=== PATIENT | female | born 1970 | race Caucasian/White ===

== ENCOUNTER 2019-07-25 12:17 | Inpatient (IN) | payer BC, MEDICARE ==
[~2019-07-25] VITALS: Ht 170.2 cm; Wt 106.4 kg
--- NOTE | 2019-07-25 15:46 | NUR ---
FROM LOBBY TO ROOM AT THIS TIME. PIT ORDERS COMPLETED
[2019-07-25] MEDS ORDERED: HYDROmorphone 1 MG/ML, 1ML INJ IM ONE (16:00)
[2019-07-25] MEDS ORDERED: ONDANSETRON ODT 4 MG PO ONE (16:00)
[2019-07-25] MEDS ORDERED: HYDROmorphone 1 MG/ML, 1ML INJ ONE (16:15)
[2019-07-25] MEDS ORDERED: ONDANSETRON ODT 4 MG ONE (16:15)
--- NOTE | 2019-07-25 16:20 | NUR ---
PT HERE WITH C/O RIGHT HIP PAIN WORSE THAN LEFT. PT HAS HX CHRONIC HIP PAIN AND SEES PAIN MANAGEMENT OUTPATIENT.
--- NOTE | 2019-07-25 16:20 | NUR ---
PT MEDICATED PER ORDERS.
[2019-07-25 16:32] LABS: HCT (SEDRATE) 48.9 % (34.6-47.8)
[2019-07-25 16:33] LABS: BASOPHILS # (AUTO) 0.04 x10^3/uL (0-0.1); BASOPHILS % (AUTO) 0 % (0-1); EOSINOPHILS # (AUTO) 0.22 x10^3/uL (0-0.4); EOSINOPHILS % (AUTO) 2 % (1-7); LYMPHOCYTES # (AUTO) 3.84 x10^3/uL (1-3.4); LYMPHOCYTES % (AUTO) 36 % (22-44); MD NO; MEAN CORPUSCULAR HGB CONC 33.8 g/dL (32.4-35.8); MEAN CORPUSCULAR VOLUME 94.7 fL (80-100); MEAN PLATELET VOLUME 7.6 fL (7.4-10.4); MONOCYTES # (AUTO) 0.79 x10^3/uL (0.2-0.8); MONOCYTES % (AUTO) 8 % (2-9); NEUTROPHILS # (AUTO) 5.65 x10^3/uL (1.8-6.8); NEUTROPHILS % (AUTO) 54 % (42-75); PLATELET COUNT 290 x10^3/uL (130-400); RED BLOOD COUNT 5.16 x10^6/uL (3.82-5.3); RED CELL DISTRIBUTION WIDTH 12.7 % (9.6-15.2)
[2019-07-25 16:45] LABS: ANION GAP 6 mmol/L (5-15); CALCIUM 9.9 mg/dL (8.5-10.1); CHLORIDE 108 mmol/L (98-107)
[2019-07-25 16:47] LABS: CREATININE 0.79 mg/dL (0.55-1.02)
[2019-07-25] MEDS ORDERED: MORPHINE SULFATE 4 MG/ML, 1ML ONE (17:09)
--- NOTE | 2019-07-25 17:12 | NUR ---
[facility] AT BEDSIDE, UA LABELLED AND SENT, PT MEDICATED PER ORDERS. PIV ESTABLISHED BY THIS RN.
[2019-07-25] MEDS: morphine SULFATE 10 MG/ML, 1ML IVPush PRN ×2 (17:19→20:17)
[2019-07-25] MEDS ORDERED: DOCU-131 PO (17:22)
[2019-07-25] MEDS ORDERED: NEBI10TA3 PO (17:22)
[2019-07-25] MEDS ORDERED: CELE100C PO (17:22)
[2019-07-25] MEDS ORDERED: ESOM40CA PO (17:22)
[2019-07-25] MEDS ORDERED: HYDR-3653 PO (17:22)
[2019-07-25] MEDS ORDERED: OXCA150T18 PO (17:22)
--- NOTE | 2019-07-25 17:22 | NUR ---
MED REC COMPLETED.
[2019-07-25] MEDS ORDERED: PROMETHAZINE 25 MG/ML, 1ML IM PRN (17:30)
[2019-07-25] MEDS ORDERED: LABETALOL 5MG/ML, 20ML IVPush PRN (17:30)
[2019-07-25] MEDS ORDERED: hydrALAzine 20 MG/ML, 1ML IVPush PRN (17:30)
[2019-07-25] MEDS ORDERED: CYCLOBENZAPRINE 10 MG TABLET PO PRN (17:30)
[2019-07-25] MEDS ORDERED: ACETAMINOPHEN 325 MG TABLET PO PRN (17:30)
[2019-07-25] MEDS ORDERED: GABAPENTIN 300 MG CAPSULE PO PRN (17:30)
[2019-07-25 17:32] LABS: MICROSCOPIC AUTO
[2019-07-25 17:36] LABS: CULTURE INDICATED? YES
[2019-07-25] MEDS: HEPARIN 5,000 UNITS/ML, 1ML SQ SCH (17:49)
[2019-07-25] MEDS: SODIUM CHLORIDE 0.9% 1,000 ML IV SCH (17:50)
[2019-07-25] MEDS ORDERED: TRAM50TA2 PO (18:03)
--- NOTE | 2019-07-25 18:04 | NUR ---
REPORT GIVEN MANJIT LUU. PT TO TRANSFER WITH ALL BELONGINGS TO INPATIENT STATUS.
[2019-07-25 19:23] VITALS: BP 125/84
[2019-07-25] MEDS: OXCARBAZEPINE 150 MG TABLET PO SCH (22:09)
[2019-07-25] MEDS: OXYcodone IR 5MG TABLET PO PRN (22:10)
[2019-07-26] MEDS: HEPARIN 5,000 UNITS/ML, 1ML SQ SCH ×3 (02:08→21:55)
[2019-07-26] MEDS: OXYcodone IR 5MG TABLET PO PRN ×5 (02:08→19:13)
[2019-07-26 02:44] VITALS: BP 112/79
[2019-07-26 06:19] LABS: BASOPHILS # (AUTO) 0.03 x10^3/uL (0-0.1); BASOPHILS % (AUTO) 1 % (0-1); EOSINOPHILS # (AUTO) 0.26 x10^3/uL (0-0.4); EOSINOPHILS % (AUTO) 3 % (1-7); LYMPHOCYTES # (AUTO) 2.47 x10^3/uL (1-3.4); LYMPHOCYTES % (AUTO) 32 % (22-44); MD NO; MEAN CORPUSCULAR HEMOGLOBIN 31.8 pg (27.0-34.8); MEAN CORPUSCULAR HGB CONC 33.3 g/dL (32.4-35.8); MEAN CORPUSCULAR VOLUME 95.5 fL (80-100); MEAN PLATELET VOLUME 7.5 fL (7.4-10.4); MONOCYTES # (AUTO) 0.61 x10^3/uL (0.2-0.8); MONOCYTES % (AUTO) 8 % (2-9); NEUTROPHILS # (AUTO) 4.44 x10^3/uL (1.8-6.8); NEUTROPHILS % (AUTO) 57 % (42-75); PLATELET COUNT 265 x10^3/uL (130-400); RED BLOOD COUNT 4.83 x10^6/uL (3.82-5.3); RED CELL DISTRIBUTION WIDTH 12.8 % (9.6-15.2)
[2019-07-26 06:23] LABS: ALBUMIN 3.3 g/dL (3.4-5.0); ANION GAP 8 mmol/L (5-15); CALCIUM 8.9 mg/dL (8.5-10.1); CHLORIDE 108 mmol/L (98-107)
[2019-07-26 06:27] LABS: ALANINE AMINOTRANSFERASE 117 U/L (12-78); ALKALINE PHOSPHATASE 83 U/L (45-117); BILIRUBIN,TOTAL 0.8 mg/dL (0.2-1.0); CREATININE 0.72 mg/dL (0.55-1.02); TOTAL PROTEIN 6.9 g/dL (6.4-8.2)
[2019-07-26 07:17] VITALS: BP 132/88
[2019-07-26] MEDS: OXCARBAZEPINE 150 MG TABLET PO SCH ×2 (08:14→21:55)
[2019-07-26] MEDS: morphine SULFATE 10 MG/ML, 1ML IVPush PRN (10:23)
[2019-07-26 13:06] VITALS: BP 108/70
[2019-07-26] MEDS: ONDANSETRON 2MG/ML, 2ML IVPush PRN (15:54)
[2019-07-26] MEDS: SODIUM CHLORIDE 0.9% 1,000 ML IV SCH (15:54)
[2019-07-26 20:10] VITALS: BP 124/79
[2019-07-27 00:14] VITALS: BP 121/82
[2019-07-27] MEDS: OXYcodone IR 5MG TABLET PO PRN ×3 (03:02→14:11)
[2019-07-27] MEDS: HEPARIN 5,000 UNITS/ML, 1ML SQ SCH ×2 (05:59→13:00)
[2019-07-27 08:56] VITALS: BP 146/96
[2019-07-27] MEDS ORDERED: CYCL-259 PO (09:45)
[2019-07-27] MEDS ORDERED: GABA300C10 PO (09:45)
[2019-07-27] MEDS: ONDANSETRON 2MG/ML, 2ML IVPush PRN (10:17)
[2019-07-27] MEDS: OXCARBAZEPINE 150 MG TABLET PO SCH (10:17)
== END 2019-07-27 14:25 | disposition home or self-care (01) | DRG 556 ==
LOC: ED 18:07 → 3N 19:11 → DCLOUNGE 07-27 14:16
PROVIDERS: ADMIT Internal Medicine; ATTEND Internal Medicine
DX: M25.551 Pain in right hip (principal); N39.0 Urinary tract infection, site not specified; Z94.81 Bone marrow transplant status; D75.1 Secondary polycythemia; E66.9 Obesity, unspecified; G89.29 Other chronic pain; I10 Essential (primary) hypertension; M25.552 Pain in left hip; I16.0 Hypertensive urgency; K59.00 Constipation, unspecified; K76.0 Fatty (change of) liver, not elsewhere classified; Z85.6 Personal history of leukemia; Z85.72 Personal history of non-Hodgkin lymphomas; Z90.710 Acquired absence of both cervix and uterus; Z90.49 Acquired absence of other specified parts of digestive tract
CPT/HCPCS: 36415; 73523; 74176; 76705; 80048; 80053; 81001; 82040; 85025; 85651; 87086; 99285; G0378; J1170; J1644; J2405; J2550; Q0162; J2270; J7030

== ENCOUNTER 2019-10-27 09:23 | Inpatient (IN) | payer OTHER, MEDICARE ==
[~2019-10-27] VITALS: Ht 170.2 cm; Wt 101.4 kg
[~2019-10-27 09:23] MED LIST: CELE100C PO; CYCL-259 PO; DOCU-131 PO; ESOM40CA PO; GABA300C10 PO; HYDR-3653 PO; NEBI10TA3 PO; OXCA150T18 PO; TRAM50TA2 PO
[2019-10-27] MEDS ORDERED: ASPIRIN 81 MG TABLET CHEW PO ONE (10:00)
[2019-10-27] MEDS ORDERED: PLEASE ENTER HEIGHT AND WEIGHT MC SCH (10:00)
[2019-10-27] MEDS ORDERED: ASPIRIN 81 MG TABLET CHEW ONE (10:06)
--- NOTE | 2019-10-27 10:09 | NUR ---
SPOKE WITH IN LOBBY, CONFIRMED WHAT PT REPORTED. ADDITIONAL INFORMATION GIVEN TO ERP. ON ARRIVAL, PT PLACED ON HEART MONITOR, BP CUFF, PULSE OX. IV PLACED, LABS DRAWN BY HOUSING GRANT ANALYST-PT WITH POOR VENOUS ACCESS. PT MEDICATED PER ERP ORDER WITH ASA. PT WITH NAUSEA/DRY HEAVES FOLLOWING, ZOFRAN 4MG IVP GIVEN. AWAITING LAB RESULTS, CXR. PT STATES "I THINK I HAVE PNEUMONIA AGAIN". PT STATES PNA 3 MONTHS AGO, REPORTS NO COUGH OR FEVER AT THAT TIME. PT DENIES FEVER OR COUGH NOW WELL. C/O CHEST PRESSURE AND R "RIB" PAIN. CALL LIGHT WITHIN REACH.
[2019-10-27] MEDS ORDERED: ONDANSETRON 2MG/ML, 2ML ONE (10:11)
[2019-10-27 10:17] LABS: BASOPHILS # (AUTO) 0.02 x10^3/uL (0-0.1); BASOPHILS % (AUTO) 0 % (0-1); EOSINOPHILS # (AUTO) 0.13 x10^3/uL (0-0.4); EOSINOPHILS % (AUTO) 2 % (1-7); LYMPHOCYTES % (AUTO) 23 % (22-44); MD NO; MEAN CORPUSCULAR HEMOGLOBIN 32.5 pg (27.0-34.8); MEAN CORPUSCULAR HGB CONC 34.1 g/dL (32.4-35.8); MEAN CORPUSCULAR VOLUME 95.2 fL (80-100); MEAN PLATELET VOLUME 8.3 fL (7.4-10.4); MONOCYTES # (AUTO) 0.35 x10^3/uL (0.2-0.8); MONOCYTES % (AUTO) 5 % (2-9); NEUTROPHILS # (AUTO) 4.83 x10^3/uL (1.8-6.8); NEUTROPHILS % (AUTO) 70 % (42-75); PLATELET COUNT 283 x10^3/uL (130-400); RED BLOOD COUNT 4.71 x10^6/uL (3.82-5.3); RED CELL DISTRIBUTION WIDTH 12.7 % (9.6-15.2)
[2019-10-27] MEDS ORDERED: OXYC10TA6 PO (10:22)
[2019-10-27 10:29] LABS: ALANINE AMINOTRANSFERASE 36 U/L (12-78); ALBUMIN 3.9 g/dL (3.4-5.0); ANION GAP 8 mmol/L (5-15); CALCIUM 10.1 mg/dL (8.5-10.1); CHLORIDE 112 mmol/L (98-107); CREATININE 0.84 mg/dL (0.55-1.02)
[2019-10-27] MEDS ORDERED: ONDANSETRON 2MG/ML, 2ML IVPush ONE (10:30)
[2019-10-27 10:33] LABS: ALKALINE PHOSPHATASE 62 U/L (45-117); BILIRUBIN,TOTAL 0.5 mg/dL (0.2-1.0); TROPONIN I < 0.015 ng/mL (0.000-0.045)
--- NOTE | 2019-10-27 11:04 | NUR ---
PT ASSISTED ON BEDPAN, STATES SHE'S TOO WEAK TO GET UP TO BSC. PT ALSO REQUESTING PAIN MEDICATION FOR CHEST PRESSURE-ERP NOTIFIED.
--- NOTE | 2019-10-27 11:20 | NUR ---
PT REMOVED FROM BEDPAN. PT STATES UNABLE TO GO ON BEDPAN. ERP IN WITH SPOUSE TO DISCUSS FINDINGS AND POC.
[2019-10-27] MEDS ORDERED: [UNRECOGNIZED DRUG - OTHER] IM (11:58)
--- NOTE | 2019-10-27 12:00 | NUR ---
MED REC COMPLETED. VSS/UPDATED IN COMPUTER. PT UPDATED ON POC-TBADMIT.
[2019-10-27] MEDS ORDERED: SODIUM CHLORIDE FLUSH 10ML SYR IVF PRN (12:30)
[2019-10-27] MEDS: SODIUM CHLORIDE 0.9% 1,000 ML IV SCH (12:41)
--- NOTE | 2019-10-27 13:39 | NUR ---
PT TO MRI, NEUROSTIMULATOR PLACED IN MRI MODE.
--- NOTE | 2019-10-27 14:15 | NUR ---
REPORT CALLED TO DEEPTHI SARAVIA. PT BACK FROM CT. CALL TO MRI TO INQUIRE ON WHY EXAM NOT DONE. PER MRI, PT'S SHOULDERS TOO WIDE FOR AVAIL MRI MACHINE. LARGER MRI IN USE AT THIS TIME. DEEPTHI CALLED AND UPDATED.
[2019-10-27 16:32] VITALS: BP 141/98
[2019-10-27 16:48] LABS: TROPONIN I < 0.015 ng/mL (0.000-0.045)
[2019-10-27] MEDS: OXYcodone/APAP 5/325MG TABLET PO PRN ×3 (17:11→22:30)
[2019-10-27 19:27] VITALS: BP 131/87
[2019-10-27] MEDS: ATORVASTATIN 40 MG TABLET PO SCH (20:24)
[2019-10-27 22:26] LABS: TROPONIN I < 0.015 ng/mL (0.000-0.045)
[2019-10-27] MEDS: ACETAMINOPHEN 325 MG TABLET PO PRN (22:30)
[2019-10-27 22:35] VITALS: BP 135/89
[2019-10-27] MEDS: ONDANSETRON 2MG/ML, 2ML IVPush PRN (22:42)
[2019-10-28 01:11] VITALS: BP 120/78
[2019-10-28] MEDS: SODIUM CHLORIDE 0.9% 1,000 ML IV SCH ×2 (02:01→15:21)
[2019-10-28] MEDS: OXYcodone/APAP 5/325MG TABLET PO PRN ×4 (04:14→14:21)
[2019-10-28] MEDS: ACETAMINOPHEN 325 MG TABLET PO PRN (04:14)
[2019-10-28 04:59] LABS: ALANINE AMINOTRANSFERASE 31 U/L (12-78); ALBUMIN 3.6 g/dL (3.4-5.0); ANION GAP 7 mmol/L (5-15); CALCIUM 9.5 mg/dL (8.5-10.1); CHLORIDE 111 mmol/L (98-107); CREATININE 0.88 mg/dL (0.55-1.02)
[2019-10-28 05:01] LABS: ALKALINE PHOSPHATASE 52 U/L (45-117); BILIRUBIN,TOTAL 0.7 mg/dL (0.2-1.0); TOTAL PROTEIN 7.4 g/dL (6.4-8.2)
[2019-10-28 05:04] LABS: BASOPHILS # (AUTO) 0.04 x10^3/uL (0-0.1); BASOPHILS % (AUTO) 1 % (0-1); EOSINOPHILS # (AUTO) 0.23 x10^3/uL (0-0.4); EOSINOPHILS % (AUTO) 2 % (1-7); LYMPHOCYTES # (AUTO) 3.13 x10^3/uL (1-3.4); LYMPHOCYTES % (AUTO) 33 % (22-44); MD NO; MEAN CORPUSCULAR HEMOGLOBIN 32.2 pg (27.0-34.8); MEAN CORPUSCULAR HGB CONC 33.9 g/dL (32.4-35.8); MEAN PLATELET VOLUME 8.4 fL (7.4-10.4); MONOCYTES # (AUTO) 0.73 x10^3/uL (0.2-0.8); MONOCYTES % (AUTO) 8 % (2-9); NEUTROPHILS # (AUTO) 5.33 x10^3/uL (1.8-6.8); NEUTROPHILS % (AUTO) 56 % (42-75); PLATELET COUNT 290 x10^3/uL (130-400); RED BLOOD COUNT 4.52 x10^6/uL (3.82-5.3); RED CELL DISTRIBUTION WIDTH 12.7 % (9.6-15.2)
[2019-10-28] MEDS: PANTOPRAZOLE 40MG TABLET PO SCH (05:26)
[2019-10-28] MEDS: OXCARBAZEPINE 150 MG TABLET PO SCH (08:26)
[2019-10-28] MEDS: NEBIVOLOL HCL 5 MG TABLET PO SCH (08:26)
[2019-10-28 08:36] VITALS: BP 122/78
[2019-10-28] MEDS ORDERED: MAGNESIUM SULFATE PMX 2GM/50ML 50 ML ONE (09:49)
[2019-10-28] MEDS ORDERED: PROCHLORPERAZINE 5 MG/ML, 2ML IVPush ONE (10:00)
[2019-10-28] MEDS ORDERED: DIPHENHYDRAMINE 50 MG/ML, 1ML IVPush ONE (10:00)
[2019-10-28] MEDS ORDERED: MAGNESIUM SULFATE/D5W 100 ML IV ONE (10:00)
[2019-10-28] MEDS ORDERED: GADOTERATE 10 MMOL/20 ML SYR ONE (11:30)
[2019-10-28 14:00] VITALS: BP 124/85
[2019-10-28] MEDS ORDERED: DIPHENHYDRAMINE 50 MG/ML, 1ML ONE (18:54)
[2019-10-28] MEDS: PROCHLORPERAZINE 5 MG/ML, 2ML IVPush PRN (19:11)
[2019-10-28] MEDS: DIPHENHYDRAMINE 50 MG/ML, 1ML IVPush PRN (19:11)
[2019-10-28 19:33] VITALS: BP 125/80
[2019-10-28] MEDS: ATORVASTATIN 40 MG TABLET PO SCH (20:36)
[2019-10-28] MEDS ORDERED: KETOROLAC 30 MG/1 ML IVPush SCH (21:00)
[2019-10-28] MEDS: ONDANSETRON 2MG/ML, 2ML IVPush PRN (23:54)
[2019-10-29 01:10] VITALS: BP 126/80
[2019-10-29] MEDS: DIPHENHYDRAMINE 50 MG/ML, 1ML IVPush PRN ×2 (05:29→16:00)
[2019-10-29] MEDS: PANTOPRAZOLE 40MG TABLET PO SCH (05:29)
[2019-10-29] MEDS: PROCHLORPERAZINE 5 MG/ML, 2ML IVPush PRN ×2 (05:29→16:00)
[2019-10-29] MEDS: KETOROLAC 30 MG/1 ML IVPush PRN ×2 (05:30→16:01)
[2019-10-29 08:25] VITALS: BP 138/89
[2019-10-29] MEDS: ONDANSETRON 2MG/ML, 2ML IVPush PRN (08:33)
[2019-10-29] MEDS: SODIUM CHLORIDE 0.9% 1,000 ML IV SCH (08:33)
[2019-10-29] MEDS: OXCARBAZEPINE 150 MG TABLET PO SCH (08:36)
[2019-10-29] MEDS: NEBIVOLOL HCL 5 MG TABLET PO SCH (08:36)
[2019-10-29] MEDS ORDERED: SODIUM PHOSPHATE 20 MMOL in SODIUM CHLORIDE 0.9% 500 ML IV ONE (09:00)
[2019-10-29] MEDS: OXYcodone/APAP 5/325MG TABLET PO PRN (12:30)
[2019-10-29] MEDS ORDERED: GADOTERATE 10 MMOL/20 ML SYR ONE (14:45)
[2019-10-29] MEDS ORDERED: GADOTERATE 5 MMOL/10 ML VIAL ONE (14:45)
[2019-10-29 15:29] VITALS: BP 131/83
[2019-10-29 21:02] VITALS: BP 146/94
[2019-10-29] MEDS: ATORVASTATIN 40 MG TABLET PO SCH (21:03)
[2019-10-29] MEDS: AMITRIPTYLINE 10 MG TABLET PO SCH (21:03)
[2019-10-30] MEDS: OXYcodone/APAP 5/325MG TABLET PO PRN ×2 (00:21→14:47)
[2019-10-30 00:27] VITALS: BP 148/75
[2019-10-30] MEDS: SODIUM CHLORIDE 0.9% 1,000 ML IV SCH (05:19)
[2019-10-30] MEDS: PANTOPRAZOLE 40MG TABLET PO SCH (05:19)
[2019-10-30 06:43] VITALS: BP 129/84
[2019-10-30] MEDS: OXCARBAZEPINE 150 MG TABLET PO SCH (08:09)
[2019-10-30] MEDS: NEBIVOLOL HCL 5 MG TABLET PO SCH (08:09)
[2019-10-30] MEDS: PROCHLORPERAZINE 5 MG/ML, 2ML IVPush PRN ×2 (10:26→19:32)
[2019-10-30] MEDS ORDERED: SUMATRIPTAN 50 MG TABLET PO PRN (11:30)
[2019-10-30 12:18] VITALS: BP 133/87
[2019-10-30] MEDS ORDERED: SUMATRIPTAN 25 MG TABLET ONE (18:07)
[2019-10-30 18:38] VITALS: BP 134/80
[2019-10-30] MEDS: AMITRIPTYLINE 10 MG TABLET PO SCH (19:24)
[2019-10-30] MEDS: ATORVASTATIN 40 MG TABLET PO SCH (19:24)
[2019-10-30] MEDS: DIPHENHYDRAMINE 50 MG/ML, 1ML IVPush PRN (19:32)
[2019-10-31 00:21] VITALS: BP 128/87
[2019-10-31] MEDS: OXYcodone/APAP 5/325MG TABLET PO PRN ×5 (02:28→23:16)
[2019-10-31] MEDS: PANTOPRAZOLE 40MG TABLET PO SCH (05:52)
[2019-10-31 06:54] LABS: ANION GAP 8 mmol/L (5-15); CALCIUM 9.9 mg/dL (8.5-10.1); CHLORIDE 112 mmol/L (98-107); CREATININE 0.69 mg/dL (0.55-1.02)
[2019-10-31 06:57] LABS: BASOPHILS # (AUTO) 0.05 x10^3/uL (0-0.1); BASOPHILS % (AUTO) 1 % (0-1); EOSINOPHILS # (AUTO) 0.38 x10^3/uL (0-0.4); EOSINOPHILS % (AUTO) 4 % (1-7); LYMPHOCYTES # (AUTO) 3.73 x10^3/uL (1-3.4); LYMPHOCYTES % (AUTO) 41 % (22-44); MD NO; MEAN CORPUSCULAR HEMOGLOBIN 32.3 pg (27.0-34.8); MEAN CORPUSCULAR HGB CONC 33.6 g/dL (32.4-35.8); MEAN CORPUSCULAR VOLUME 96.1 fL (80-100); MEAN PLATELET VOLUME 8.4 fL (7.4-10.4); MONOCYTES # (AUTO) 0.65 x10^3/uL (0.2-0.8); MONOCYTES % (AUTO) 7 % (2-9); NEUTROPHILS # (AUTO) 4.31 x10^3/uL (1.8-6.8); NEUTROPHILS % (AUTO) 47 % (42-75); PLATELET COUNT 271 x10^3/uL (130-400); RED BLOOD COUNT 4.61 x10^6/uL (3.82-5.3); RED CELL DISTRIBUTION WIDTH 13.2 % (9.6-15.2)
[2019-10-31 07:21] VITALS: BP 123/76
[2019-10-31] MEDS: NEBIVOLOL HCL 5 MG TABLET PO SCH (08:43)
[2019-10-31] MEDS: OXCARBAZEPINE 150 MG TABLET PO SCH (08:43)
[2019-10-31 12:13] VITALS: BP 144/86
[2019-10-31] MEDS ORDERED: ERENUMAB AOOE 140 MG HOMEINJ ONE (13:00)
[2019-10-31 19:49] VITALS: BP 149/93
[2019-10-31] MEDS: AMITRIPTYLINE 10 MG TABLET PO SCH (20:01)
[2019-10-31] MEDS: ATORVASTATIN 40 MG TABLET PO SCH (20:01)
[2019-10-31 21:41] VITALS: BP 143/89
[2019-11-01 02:00] VITALS: BP 138/82
[2019-11-01] MEDS: OXYcodone/APAP 5/325MG TABLET PO PRN ×2 (04:29→12:17)
[2019-11-01] MEDS: PANTOPRAZOLE 40MG TABLET PO SCH (05:30)
[2019-11-01 07:16] VITALS: BP 160/100
[2019-11-01] MEDS: NEBIVOLOL HCL 5 MG TABLET PO SCH (07:42)
[2019-11-01] MEDS: OXCARBAZEPINE 150 MG TABLET PO SCH (07:42)
[2019-11-01] MEDS: PROCHLORPERAZINE 5 MG/ML, 2ML IVPush PRN (07:49)
[2019-11-01] MEDS: DIPHENHYDRAMINE 50 MG/ML, 1ML IVPush PRN (07:49)
[2019-11-01] MEDS ORDERED: AMIT10TA PO (12:02)
== END 2019-11-01 13:40 | disposition home or self-care (01) | DRG 103 ==
LOC: ED 11:45 → EDIP 12:02 → 4WST 14:33 → DCLOUNGE 11-01 13:30
PROVIDERS: ADMIT Internal Medicine; ATTEND Family Medicine
DX: G43.909 Migraine, unspecified, not intractable, without status migrainosus (principal); Z94.81 Bone marrow transplant status; I10 Essential (primary) hypertension; E66.9 Obesity, unspecified; G47.33 Obstructive sleep apnea (adult) (pediatric); E87.6 Hypokalemia; G89.29 Other chronic pain; M54.9 Dorsalgia, unspecified; Z90.710 Acquired absence of both cervix and uterus; Z90.49 Acquired absence of other specified parts of digestive tract; Z88.8 Allergy status to other drugs, medicaments and biological substances; Z91.041 Radiographic dye allergy status; Z91.040 Latex allergy status; Z85.6 Personal history of leukemia; Z79.899 Other long term (current) drug therapy; Z86.011 Personal history of benign neoplasm of the brain; Z85.72 Personal history of non-Hodgkin lymphomas
CPT/HCPCS: 36415; 70544; 70553; 71045; 71250; 72156; 72157; 72158; 74176; 80048; 80053; 82550; 82607; 83690; 83735; 84100; 84443; 84484; 85025; 85379; 93005; 93306; 93356; 99285; A9575; G0378; J1885; J2405; J0780; J1200; J7030; J7040

== ENCOUNTER 2020-01-02 10:22 | Inpatient (IN) | payer OTHER, MEDICARE ==
[~2020-01-02] VITALS: Ht 168.9 cm; Wt 98.9 kg
[~2020-01-02 10:22] MED LIST changes: +AMIT10TA PO; +BUSP10TA PO; +FREM225S IJ; +OXCA300T19 PO; +OXYC10TA6 PO; +OXYC5CAP2 PO; +POLY17PO5 PO; +TRAZ50TA66 PO; +[UNRECOGNIZED DRUG - OTHER] IM; +topamax PO
[2020-01-02] MEDS ORDERED: LIDOCAINE-MPF 1%, 2ML INFIL ONE (10:44)
[2020-01-02] MEDS ORDERED: LACTATED RINGERS 1,000 ML IV ONE (10:44)
[2020-01-02 10:45] VITALS: BP 143/99
[2020-01-02] MEDS ORDERED: FENTANYL PF 100 MCG/2ML ONE ×3 (11:18→13:49)
[2020-01-02] MEDS ORDERED: MIDAZOLAM 1 MG/ML, 2ML ONE (11:18)
[2020-01-02] MEDS ORDERED: SUCCINYLCHOLINE 20 MG/ML, 10ML ONE (11:53)
[2020-01-02] MEDS ORDERED: KETOROLAC 30 MG/1 ML ONE (11:53)
[2020-01-02] MEDS ORDERED: ROCURONIUM 10 MG/ML,10ML ONE (11:53)
[2020-01-02] MEDS ORDERED: ONDANSETRON 2MG/ML, 2ML ONE (12:27)
[2020-01-02] MEDS ORDERED: PROPOFOL 10 MG/ML, 20ML ONE (12:27)
[2020-01-02] MEDS ORDERED: DEXAMETHASONE 4 MG/ML, 1ML ONE (12:27)
[2020-01-02] MEDS ORDERED: CEFAZOLIN 1,000 MG ONE (12:27)
[2020-01-02] MEDS: LABETALOL 5MG/ML, 20ML IV PRN ×3 (13:07→13:32)
[2020-01-02] MEDS ORDERED: LABETALOL 5MG/ML, 20ML ONE (13:08)
[2020-01-02] MEDS ORDERED: PROMETHAZINE 25 MG/ML, 1ML ONE (13:23)
[2020-01-02] MEDS: PROMETHAZINE 25 MG/ML, 1ML IVPush PRN ×2 (13:25→13:55)
[2020-01-02] MEDS ORDERED: HYDROmorphone 1 MG/ML, 1ML INJ IVPush PRN (13:30)
[2020-01-02] MEDS ORDERED: hydrALAzine 20 MG/ML, 1ML IV PRN (13:30)
[2020-01-02] MEDS ORDERED: ACETAMINOPHEN 325 MG TABLET PO PRN (13:30)
[2020-01-02] MEDS ORDERED: OXYcodone 5 MG/5 ML ORAL.SOL UDC PO PRN (13:30)
[2020-01-02] MEDS ORDERED: LORazepam 2 MG/ML, 1ML IVPush PRN (13:30)
[2020-01-02] MEDS ORDERED: MEPERIDINE/PF 25MG/0.5ML IVPush PRN (13:30)
[2020-01-02] MEDS ORDERED: ALBUTEROL SULFATE 2.5 MG/3 ML NPPB PRN (13:30)
[2020-01-02 13:34] LABS: 5MIN %DROP IOPTH 87 %; IOPTH BASELINE 61 pg/mL
[2020-01-02] MEDS ORDERED: hydrALAzine 20 MG/ML, 1ML ONE (13:36)
[2020-01-02] MEDS: FENTANYL PF 100 MCG/2ML IV PRN ×4 (13:52→14:22)
[2020-01-02 14:50] VITALS: BP 134/86
[2020-01-02] MEDS ORDERED: POLYETHYLENE GLYCOL 17 GM PACKET PO PRN (15:30)
[2020-01-02] MEDS ORDERED: KETOROLAC 30 MG/1 ML IV PRN (15:30)
[2020-01-02] MEDS ORDERED: TRAZODONE 50MG TABLET PO PRN (15:30)
[2020-01-02] MEDS: [UNRECOGNIZED DRUG - REMARK] MC SCH ×2 (15:30→21:44)
[2020-01-02] MEDS: HYDROmorphone 1 MG/ML, 1ML INJ IV PRN ×2 (17:33→19:47)
[2020-01-02 18:15] LABS: CALCIUM 9.1 mg/dL (8.5-10.1)
[2020-01-02] MEDS: OXYcodone IR 5MG TABLET PO SCH (19:48)
[2020-01-02] MEDS: LACTATED RINGERS 1,000 ML IV SCH (19:48)
[2020-01-02] MEDS: BUSPIRONE 10 MG TABLET PO SCH (19:48)
[2020-01-02] MEDS: DOCUSATE 100 MG CAPSULE PO SCH (19:48)
[2020-01-02] MEDS: OXCARBAZEPINE 300MG TABLET PO SCH (19:48)
[2020-01-02 19:50] VITALS: BP 123/85
[2020-01-02] MEDS: HYDROcodone/APAP 5/325 TABLET PO PRN (23:49)
[2020-01-02 23:56] VITALS: BP 97/68
[2020-01-03 01:00] LABS: ALBUMIN 3.5 g/dL (3.4-5.0); CALCIUM 8.6 mg/dL (8.5-10.1)
[2020-01-03 03:50] VITALS: BP 109/76
[2020-01-03] MEDS: HYDROcodone/APAP 5/325 TABLET PO PRN ×2 (03:54→09:24)
[2020-01-03 05:00] VITALS: BP 110/74
[2020-01-03] MEDS ORDERED: NEBIVOLOL HCL 5 MG TABLET PO SCH (06:00)
[2020-01-03 07:06] LABS: ALBUMIN 3.6 g/dL (3.4-5.0); CALCIUM 8.9 mg/dL (8.5-10.1)
[2020-01-03] MEDS: HYDROmorphone 1 MG/ML, 1ML INJ IV PRN (07:21)
[2020-01-03 07:27] VITALS: BP 103/67
[2020-01-03] MEDS: [UNRECOGNIZED DRUG - REMARK] MC SCH (07:30)
[2020-01-03] MEDS: BUSPIRONE 10 MG TABLET PO SCH (08:05)
[2020-01-03] MEDS: OXCARBAZEPINE 300MG TABLET PO SCH (08:06)
[2020-01-03] MEDS: DOCUSATE 100 MG CAPSULE PO SCH (08:06)
[2020-01-03] MEDS: OXYcodone IR 5MG TABLET PO SCH (08:06)
[2020-01-03] MEDS: LACTATED RINGERS 1,000 ML IV SCH (09:20)
[2020-01-03] MEDS ORDERED: HYDR-3652 PO (09:25)
== END 2020-01-03 11:52 | disposition home or self-care (01) | DRG 627 ==
LOC: OUT 10:22 → 4NE 14:39 → OUT 15:01 → DCLOUNGE 01-03 11:40
PROVIDERS: ADMIT Surgery; ATTEND Surgery
PROC: 0GTR0ZZ Resection of Parathyroid Gland, Open Approach (ICD-10-PCS; principal; 2020-01-02 13:30)
DX: E21.0 Primary hyperparathyroidism (principal); Z20.828 Contact with and (suspected) exposure to other viral communicable diseases; Z91.041 Radiographic dye allergy status; Z88.8 Allergy status to other drugs, medicaments and biological substances
CPT/HCPCS: 36415; J3490; 82040; 82310; 83970; 87635; 88305; 88331; 93005; G0378; J0690; J1100; J1170; J1885; J2250; J2405; J2550; J2704; J3010; C1760; J0330; J0360; J7120

== ENCOUNTER 2020-01-10 10:08 | Outpatient (CLI) | payer OTHER, MEDICARE ==
[~2020-01-10 10:08] MED LIST changes: +HYDR-3652 PO
[2020-01-10] MEDS ORDERED: LIDOCAINE-MPF 1%, 5ML ONE (10:20)
== END 2020-01-10 23:59 | disposition home or self-care (01) ==
LOC: RAD 10:08
PROVIDERS: ATTEND Family Medicine
DX: Z45.2 Encounter for adjustment and management of vascular access device (principal); Z79.899 Other long term (current) drug therapy; Z72.89 Other problems related to lifestyle; Z88.8 Allergy status to other drugs, medicaments and biological substances; Z91.041 Radiographic dye allergy status; Z91.040 Latex allergy status; Z85.6 Personal history of leukemia
CPT/HCPCS: 36573; C1751

== ENCOUNTER 2020-02-04 12:52 | Emergency (ER) | payer OTHER, MEDICARE ==
[~2020-02-04] VITALS: Ht 170.2 cm; Wt 102.0 kg
[2020-02-04 14:30] VITALS: BP 150/98
--- NOTE | 2020-02-04 14:31 | NUR ---
PT SITTING IN BED COMFOTABLY. SPOUSE AT BED SIDE. SEEN BY ERP AND DISCUSSED PLAN OF CARE. PT VERBALIZED UNDERSTANDING. CALL LIGHT WITHIN REACH. NO NEEDS AT THIS TIME.
--- NOTE | 2020-02-04 14:49 | NUR ---
DC RN ONLY: Patient/Caregiver given discharge instructions and they have confirmed that they understand the instructions. Patient ambulatory with steady gait.
[2020-02-04] MEDS ORDERED: BUPIVACAINE 0.25% ONE (14:53)
[2020-02-04] MEDS ORDERED: CYCL-259 PO (22:40)
[2020-02-04] MEDS ORDERED: TRAM50TA2 PO (22:40)
[2020-02-04] MEDS ORDERED: BUSP5TAB2 PO (22:40)
[2020-02-04] MEDS ORDERED: ROSU5TAB PO (22:40)
[2020-02-04] MEDS ORDERED: ESOM40CA PO (22:40)
[2020-02-04] MEDS ORDERED: OXCA150T18 PO (22:40)
== END 2020-02-04 14:51 | disposition home or self-care (01) ==
LOC: ED 14:30
DX: Z48.01 Encounter for change or removal of surgical wound dressing (principal); I10 Essential (primary) hypertension
CPT/HCPCS: 87070; 87102; 87106; 87186; 93005; 99284

== ENCOUNTER 2020-02-04 18:53 | Observation (INO) | payer OTHER, MEDICARE ==
[~2020-02-04] VITALS: Ht 170.2 cm; Wt 93.8 kg
--- NOTE | 2020-02-04 19:01 | NUR ---
THIS IS A 49Y F BIB EMS FROM [place], PT WAS SEEN HERE EARLIER TODAY AND HAD PICC REMOVED, PT INITIAL C/O CP [id number] AT VISIT PREVIOUSLY. PT STS AFTER PICC REMOVAL PAIN INC 01/08 RADIATES TO JAW. 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 PT CONNECTED TO ALL MONITORING VSS NADN, PT BREATHING RAPIDLY BUT FOLLOWS COMMANDS FOR SHORT TIME TO SLOW BREATHING TO ASSIST WITH CALMING.
[2020-02-04] MEDS ORDERED: ONDANSETRON ODT 4 MG ONE (19:21)
[2020-02-04] MEDS ORDERED: HYDROcodone/APAP 5/325 TABLET ONE (19:21)
[2020-02-04] MEDS ORDERED: HYDROcodone/APAP 5/325 TABLET PO ONE (19:30)
[2020-02-04] MEDS ORDERED: ONDANSETRON ODT 4 MG PO ONE (19:30)
--- NOTE | 2020-02-04 19:33 | NUR ---
PT TO XRAY. LABS DRAWN PT MEDICATED PER HIREN GERARD 5 RIGHTS VERIFIED
[2020-02-04 19:39] LABS: BASOPHILS # (AUTO) 0.04 x10^3/uL (0-0.1); BASOPHILS % (AUTO) 1 % (0-1); EOSINOPHILS # (AUTO) 0.29 x10^3/uL (0-0.4); EOSINOPHILS % (AUTO) 3 % (1-7); LYMPHOCYTES # (AUTO) 2.53 x10^3/uL (1-3.4); LYMPHOCYTES % (AUTO) 30 % (22-44); MD NO; MEAN CORPUSCULAR HEMOGLOBIN 31.4 pg (27.0-34.8); MEAN CORPUSCULAR HGB CONC 33.6 g/dL (32.4-35.8); MEAN PLATELET VOLUME 7.9 fL (7.4-10.4); MONOCYTES # (AUTO) 0.72 x10^3/uL (0.2-0.8); MONOCYTES % (AUTO) 8 % (2-9); NEUTROPHILS # (AUTO) 4.94 x10^3/uL (1.8-6.8); NEUTROPHILS % (AUTO) 58 % (42-75); PLATELET COUNT 282 x10^3/uL (130-400); RED BLOOD COUNT 4.83 x10^6/uL (3.82-5.3); RED CELL DISTRIBUTION WIDTH 12.5 % (9.6-15.2)
--- NOTE | 2020-02-04 19:40 | NUR ---
PT NOW BACK FROM IMAGING
[2020-02-04 19:44] LABS: ALANINE AMINOTRANSFERASE 31 U/L (12-78); ALBUMIN 3.7 g/dL (3.4-5.0); ANION GAP 9 mmol/L (5-15); CALCIUM 9.1 mg/dL (8.5-10.1); CHLORIDE 111 mmol/L (98-107); CREATININE 0.89 mg/dL (0.55-1.02)
[2020-02-04 19:49] LABS: ALKALINE PHOSPHATASE 53 U/L (45-117); BILIRUBIN,TOTAL 0.4 mg/dL (0.2-1.0); TOTAL PROTEIN 7.7 g/dL (6.4-8.2); TROPONIN I < 0.015 ng/mL (0.000-0.045)
--- NOTE | 2020-02-04 21:41 | NUR ---
UNABLE TO GAIN IV ACCESS FOR CTA, PT TO US TO ASSESS FOR CLOTS BEFORE ATTEMPTING R ARM
[2020-02-04] MEDS ORDERED: ASPIRIN 81 MG TABLET CHEW PO ONE (22:00)
--- NOTE | 2020-02-04 22:00 | NUR ---
REPORT TO LORENZO SARAVIA ALL QUESTIONS ADDRESSED
[2020-02-04] MEDS ORDERED: BUSP5TAB2 PO (22:40)
[2020-02-04] MEDS ORDERED: ROSU5TAB PO (22:40)
[2020-02-04] MEDS ORDERED: ESOM40CA PO (22:40)
[2020-02-04] MEDS ORDERED: OXCA150T18 PO (22:40)
[2020-02-04] MEDS ORDERED: TRAM50TA2 PO (22:40)
[2020-02-04] MEDS ORDERED: CYCL-259 PO (22:40)
--- NOTE | 2020-02-04 22:42 | NUR ---
PT NOW BACK FROM IMAGING
[2020-02-04 23:45] VITALS: BP 163/134
[2020-02-05] MEDS ORDERED: DOCUSATE 100 MG CAPSULE PO PRN (01:00)
[2020-02-05] MEDS ORDERED: MELATONIN 5 MG TABLET PO PRN (01:00)
[2020-02-05] MEDS ORDERED: POLYETHYLENE GLYCOL 17 GM PACKET PO PRN (01:00)
[2020-02-05] MEDS ORDERED: ACETAMINOPHEN 325 MG TABLET PO PRN (01:00)
[2020-02-05] MEDS ORDERED: TRAZODONE 50MG TABLET PO PRN (01:00)
[2020-02-05] MEDS ORDERED: LIDODERM 5% PATCH TD PRN (01:00)
[2020-02-05] MEDS: ATORVASTATIN 20 MG TABLET PO SCH ×2 (01:11→22:16)
[2020-02-05] MEDS: HEPARIN 5,000 UNITS/ML, 1ML SQ SCH ×3 (01:12→16:32)
[2020-02-05 02:00] LABS: CHOL/HDL RATIO 5.4; CHOLESTEROL, TOTAL 178 mg/dL (140-239); HDL CHOL % 19 % (28-40); HDL CHOLESTEROL (DIRECT) 33 mg/dL (40-60); LDL CHOLESTEROL,CALCULATED 110 mg/dL (54-169); LDL/HDL RATIO 3.3 (0.5-3.0); TRIGLYCERIDES 174 mg/dL (50-200); TROPONIN I < 0.015 ng/mL (0.000-0.045); VLDL CHOLESTEROL 35 mg/dL (0-25)
[2020-02-05 02:06] VITALS: BP 132/82
[2020-02-05] MEDS ORDERED: OMEPRAZOLE 20 MG CAPSULE.DR PO SCH (06:30)
[2020-02-05 06:56] VITALS: BP 147/100
[2020-02-05 07:59] LABS: TROPONIN I < 0.015 ng/mL (0.000-0.045)
[2020-02-05] MEDS: OXCARBAZEPINE 150 MG TABLET PO SCH ×2 (08:18→22:16)
[2020-02-05] MEDS: OXYcodone IR 5MG TABLET PO SCH ×2 (08:18→22:16)
[2020-02-05] MEDS: CYCLOBENZAPRINE 10 MG TABLET PO SCH (08:18)
[2020-02-05] MEDS: BUSPIRONE 5 MG TABLET PO SCH ×2 (08:18→22:16)
[2020-02-05] MEDS: DOCUSATE 100 MG CAPSULE PO SCH ×2 (08:18→22:16)
[2020-02-05 13:38] VITALS: BP 127/85
[2020-02-05] MEDS: POTASSIUM CHLORIDE 20 MEQ TAB.ER.PRT PO SCH (16:32)
[2020-02-05 20:28] VITALS: BP 132/89
[2020-02-05] MEDS ORDERED: NITROGLYCERIN 0.4 MG/SPRAY SL PRN (21:00)
[2020-02-05] MEDS ORDERED: NITROGLYCERIN 0.4 MG BOTTLE (25 TABS) SL PRN (21:00)
[2020-02-05] MEDS ORDERED: MAALOX/HYOSCYAMINE/LIDOCAINE 45 ML BTL PO ONE (21:30)
[2020-02-05] MEDS: OMEPRAZOLE 20 MG CAPSULE.DR PO SCH (22:16)
[2020-02-06 01:39] VITALS: BP 111/75
[2020-02-06] MEDS: HEPARIN 5,000 UNITS/ML, 1ML SQ SCH ×2 (01:42→08:25)
[2020-02-06 07:44] VITALS: BP 130/85
[2020-02-06] MEDS: POTASSIUM CHLORIDE 20 MEQ TAB.ER.PRT PO SCH (08:25)
[2020-02-06] MEDS: OMEPRAZOLE 20 MG CAPSULE.DR PO SCH (08:25)
[2020-02-06] MEDS: BUSPIRONE 5 MG TABLET PO SCH (08:25)
[2020-02-06] MEDS: CYCLOBENZAPRINE 10 MG TABLET PO SCH (08:26)
[2020-02-06] MEDS: DOCUSATE 100 MG CAPSULE PO SCH (08:26)
[2020-02-06] MEDS ORDERED: FLUCONAZOLE 200 MG TABLET PO SCH (09:00)
[2020-02-06] MEDS: OXYcodone IR 5MG TABLET PO SCH (09:00)
[2020-02-06] MEDS: OXCARBAZEPINE 150 MG TABLET PO SCH (09:37)
[2020-02-06] MEDS ORDERED: REGADENOSON 0.4 MG/5 ML SYRINGE ONE (12:07)
[2020-02-06 13:49] VITALS: BP 130/88
[2020-02-06] MEDS ORDERED: OMEP-110 PO (14:57)
[2020-02-06] MEDS ORDERED: POTA20TA6 PO (14:57)
[2020-02-06] MEDS ORDERED: FLUC200T PO (14:57)
[2020-02-06] MEDS ORDERED: AMOX1TAB64 PO (14:57)
== END 2020-02-06 16:35 | disposition home or self-care (01) ==
LOC: ED 20:03 → EDIP 22:18 → INTOOBSV 22:18 → UNDOADMOB 22:18 → 5SO 22:58 → EDIP 22:58 → 5SO 02-05 00:33 → EDIP 02-05 00:33 → UNDODISOB 02-06 16:35
PROVIDERS: ADMIT Family Medicine; ATTEND Internal Medicine
DX: R07.89 Other chest pain (principal); E87.6 Hypokalemia; E21.0 Primary hyperparathyroidism; E66.9 Obesity, unspecified; G47.33 Obstructive sleep apnea (adult) (pediatric); F31.9 Bipolar disorder, unspecified; F41.9 Anxiety disorder, unspecified; I10 Essential (primary) hypertension; R79.89 Other specified abnormal findings of blood chemistry; L03.113 Cellulitis of right upper limb; Z85.72 Personal history of non-Hodgkin lymphomas; Z86.011 Personal history of benign neoplasm of the brain; Z91.041 Radiographic dye allergy status; Z85.6 Personal history of leukemia; Z79.899 Other long term (current) drug therapy; Z91.040 Latex allergy status; Z90.710 Acquired absence of both cervix and uterus; Z94.81 Bone marrow transplant status
CPT/HCPCS: 36415; 71046; 78452; 78582; 80053; 80061; 83735; 84443; 84484; 85025; 85379; 93005; 93017; 93306; 93971; 96372; 99285; A9502; A9540; A9558; C9898; G0378; J1644; J2785; Q0162

== ENCOUNTER → 2020-07-30 | Outpatient (CLI) | payer OTHER, MEDICARE ==
[~2020-07-30] MED LIST changes: +AMOX1TAB64 PO; +BUSP5TAB2 PO; -CYCL-259 PO; +CYCL10TA2 PO; +FLUC200T PO; +GADOTERATE 10 MMOL/20 ML VIAL ONE; +HYDR-1067 PO; -HYDR-3652 PO; +OMEP-110 PO; +POTA20TA6 PO; +ROSU5TAB PO
== END | disposition home or self-care (01) ==
LOC: RAD 15:03
PROVIDERS: ATTEND Registered Nurse
DX: D32.9 Benign neoplasm of meninges, unspecified (principal)
CPT/HCPCS: 70553; A9575

== ENCOUNTER → 2020-10-05 | Outpatient (CLI) | payer OTHER, MEDICARE ==
[~2020-10-05] MED LIST changes: +CHOL10003 PO; +ERGO500017 PO; -GADOTERATE 10 MMOL/20 ML VIAL ONE; +LEVO75TA5 PO; +MECL-101 PO; +METO10TA82 PO; +PHEN-583 PO; +RIZA10TA20 PO
== END | disposition home or self-care (01) ==
LOC: STAR 09:32
PROVIDERS: ATTEND Internal Medicine Gastroenterology
DX: Z20.822 Contact with and (suspected) exposure to COVID-19 (principal); K31.89 Other diseases of stomach and duodenum
CPT/HCPCS: U0003; U0005

== ENCOUNTER → 2020-10-10 | Outpatient (CLI) | payer OTHER, MEDICARE ==
[~2020-10-10] MED LIST changes: +GADOTERATE 10 MMOL/20 ML VIAL ONE; +GLUCAGON 1 MG ONE; +MORPHINE PAIN PUMP
== END | disposition home or self-care (01) ==
LOC: CFH 08:27
PROVIDERS: ATTEND Internal Medicine
DX: R14.0 Abdominal distension (gaseous) (principal); K31.84 Gastroparesis; K21.9 Gastro-esophageal reflux disease without esophagitis; R07.89 Other chest pain; B37.0 Candidal stomatitis; R09.89 Other specified symptoms and signs involving the circulatory and respiratory systems; K76.0 Fatty (change of) liver, not elsewhere classified; K31.9 Disease of stomach and duodenum, unspecified; Z90.49 Acquired absence of other specified parts of digestive tract
CPT/HCPCS: 72197; 74183; A9575; J1610; J1642

== ENCOUNTER 2020-10-11 06:17 | Day surgery (SDC) | payer OTHER, MEDICARE ==
[~2020-10-11 06:17] MED LIST changes: -GADOTERATE 10 MMOL/20 ML VIAL ONE; -GLUCAGON 1 MG ONE; -MORPHINE PAIN PUMP
[2020-10-11] MEDS ORDERED: MORPHINE PAIN PUMP (07:12)
[2020-10-11] MEDS ORDERED: PROPOFOL 100 ML ONE (07:34)
[2020-10-11] MEDS ORDERED: METOCLOPRAMIDE 5 MG/ML, 2ML ONE (07:50)
[2020-10-11] MEDS ORDERED: SIMETHICONE DROPS 40 MG/0.6 ML BOTTLE ONE (07:55)
[2020-10-11] MEDS ORDERED: OXYcodone 5 MG/5 ML ORAL.SOL UDC PO PRN (08:00)
[2020-10-11] MEDS ORDERED: PROMETHAZINE 25 MG SUPP PR PRN (08:00)
[2020-10-11] MEDS ORDERED: LORazepam 2 MG/ML, 1ML IVPush PRN (08:00)
[2020-10-11] MEDS ORDERED: PROMETHAZINE 25 MG/ML, 1ML IVPush PRN (08:00)
[2020-10-11] MEDS ORDERED: HALOPERIDOL 5 MG/ML IV PRN (08:00)
[2020-10-11] MEDS ORDERED: FENTANYL PF 100 MCG/2ML IV PRN (08:00)
[2020-10-11] MEDS ORDERED: ACETAMINOPHEN 325 MG TABLET PO PRN (08:00)
[2020-10-11] MEDS ORDERED: ONDANSETRON 2MG/ML, 2ML IVPush PRN (08:00)
[2020-10-11] MEDS ORDERED: METHOCARBAMOL 1,000 MG in DEXTROSE 5% 100 ML IV PRN (08:00)
== END 2020-10-11 10:15 | disposition home or self-care (01) ==
LOC: OUT 06:17
PROVIDERS: ATTEND Internal Medicine Gastroenterology
DX: K31.89 Other diseases of stomach and duodenum (principal); K29.80 Duodenitis without bleeding; K21.9 Gastro-esophageal reflux disease without esophagitis; K31.84 Gastroparesis; G47.33 Obstructive sleep apnea (adult) (pediatric); E03.9 Hypothyroidism, unspecified; E78.5 Hyperlipidemia, unspecified; F31.9 Bipolar disorder, unspecified; E66.9 Obesity, unspecified; Z68.35 Body mass index [BMI] 35.0-35.9, adult; Z79.890 Hormone replacement therapy; Z79.891 Long term (current) use of opiate analgesic; Z79.899 Other long term (current) drug therapy; Z88.8 Allergy status to other drugs, medicaments and biological substances; Z91.040 Latex allergy status; Z90.49 Acquired absence of other specified parts of digestive tract; Z90.710 Acquired absence of both cervix and uterus; Z94.81 Bone marrow transplant status
CPT/HCPCS: 43239; 43259; 88305; J2704; J2765

== ENCOUNTER → 2020-11-22 | Outpatient (CLI) | payer OTHER, MEDICARE ==
[~2020-11-22] MED LIST changes: +MORPHINE PAIN PUMP
== END | disposition home or self-care (01) ==
LOC: CFH 08:35
PROVIDERS: ATTEND Family Medicine
DX: N64.4 Mastodynia (principal)
CPT/HCPCS: 76642; 77062; 77066; G0279

== ENCOUNTER 2020-11-30 14:01 | Emergency (ER) | payer OTHER, MEDICARE ==
[~2020-11-30] VITALS: Ht 170.2 cm; Wt 108.6 kg
--- NOTE | 2020-11-30 14:58 | NUR ---
HOME HEALTH REGISTERED NURSE: PT TO ROOM FROM LOBBY
--- NOTE | 2020-11-30 15:16 | NUR ---
CC OF "LUMP IN LEFT INNER BREAST". PT STATES "IT STARTED SMALL CYST, I SAW MY PCP, HAD ULTRASOUND AND MAMMOGRAM, AND ALSO STARTED ABX". HAS INCREASED IN SIZE AND PAIN OVER LAST WEEK. PT STILL ON ABX, ON DAY 8, STATES "THE ABX HAVEN'T DONE A THING". SO AT BEDSIDE. PAINFUL TO TOUCH. DENIES FEVER. ADVISE TO COME TO ER FROM PCP OFFICE.
[2020-11-30] MEDS ORDERED: LIDOCAINE 4% CREAM 5GM TUBE TP ONE (15:30)
[2020-11-30] MEDS ORDERED: IBUPROFEN 600 MG TABLET PO ONE (15:30)
[2020-11-30] MEDS ORDERED: IBUPROFEN 600 MG TABLET ONE (15:31)
--- NOTE | 2020-11-30 15:32 | NUR ---
PT STATES "IM NOT SUPPOSED TO TAKE IBUPROFEN FOR MY GASTROPORESIS BUT I'M NOT ALLERGIC TO IT, I'D LIKE FOR YOU TO KEEP IT LISTED AN ALLERGY". PT STATES IT IS ALSO THE ONLY THING THAT HAS HELPED WITH HER PAIN RIGHT NOW SO SHE IS FINE WITH TAKING SOME NOW.
[2020-11-30 16:00] VITALS: BP 129/77
== END 2020-11-30 18:10 | disposition home or self-care (01) ==
LOC: ED 17:18
DX: N64.9 Disorder of breast, unspecified (principal); I10 Essential (primary) hypertension; Z88.8 Allergy status to other drugs, medicaments and biological substances; Z91.041 Radiographic dye allergy status
CPT/HCPCS: 76642; 99284

== ENCOUNTER 2020-12-11 07:13 | Outpatient (CLI) | payer OTHER, MEDICARE ==
[2020-12-11] MEDS ORDERED: SODIUM BICARBONATE 4.2%, 5ML ONE (09:07)
[2020-12-11] MEDS ORDERED: LIDOCAINE 1%-EPI 1:100K, 20ML ONE (09:07)
== END 2020-12-11 23:59 | disposition home or self-care (01) ==
LOC: CFH 07:13
PROVIDERS: ATTEND Family Medicine
DX: N63.25 Unspecified lump in the left breast, overlapping quadrants (principal); C50.812 Malignant neoplasm of overlapping sites of left female breast; Z17.1 Estrogen receptor negative status [ER-]
CPT/HCPCS: 19083; 88305; 77065

== ENCOUNTER 2020-12-31 13:46 | Inpatient (IN) | payer OTHER, MEDICARE ==
[~2020-12-31] VITALS: Ht 170.2 cm; Wt 75.0 kg
[2020-12-31] MEDS ORDERED: ONDANSETRON 2MG/ML, 2ML IVPush ONE (14:30)
[2020-12-31] MEDS ORDERED: SODIUM CHLORIDE FLUSH 10ML SYR IVF ONE (14:30)
[2020-12-31] MEDS ORDERED: HYDROmorphone 1 MG/ML, 1ML INJ IV ONE ×2 (14:30→16:30)
[2020-12-31] MEDS ORDERED: HYDROmorphone 2 MG/ML, 1ML ONE ×3 (14:42→19:44)
[2020-12-31] MEDS ORDERED: ONDANSETRON 2MG/ML, 2ML ONE (14:42)
--- NOTE | 2020-12-31 16:30 | NUR ---
task RN: assumed care of pt on behalf of primary RN Koko for lunch break pt has had IV start with lab draw. well tolerted. repeated pain meds per order. pt positioning for comfort. purewick placed for [t comfort. pt reports that she has interstitial cystiti and has difficulty urinating an some incontinence. lights dimmed for comfort. pt and SO at bedside updated on POC
--- NOTE | 2020-12-31 16:39 | NUR ---
PT CAME IN CO WEAKNESS, SOB, FATIGUE. PT WAS RECENTLY IN THE HOSPITAL FOR PNA IN [facility] AND BECAME SEPTIC. PT ALSO IS CURRENTLY UNDERGOING CHEMO FOR BREAST CANCER TX. PT HAS A PORT. UNABLE TO DRAW BLOOD OFF IT. IV STARTED. MEDICATED PER MAR
[2020-12-31 16:40] LABS: BASOPHILS % (AUTO) 0 % (0-1); EOSINOPHILS % (AUTO) 1 % (1-7); LYMPHOCYTES % (AUTO) 21 % (22-44); MEAN CORPUSCULAR HEMOGLOBIN 31.1 pg (27.0-34.8); MEAN CORPUSCULAR HGB CONC 33.9 g/dL (32.4-35.8); MEAN PLATELET VOLUME 7.4 fL (7.4-10.4); MONOCYTES % (AUTO) 9 % (2-9); NEUTROPHILS % (AUTO) 69 % (42-75); PLATELET COUNT 700 x10^3/uL (130-400); RED BLOOD COUNT 3.61 x10^6/uL (3.82-5.3); RED CELL DISTRIBUTION WIDTH 13.5 % (9.6-15.2)
[2020-12-31 16:51] LABS: ALANINE AMINOTRANSFERASE 18 U/L (12-78); ALBUMIN 3.3 g/dL (3.4-5.0); ANION GAP 8 mmol/L (5-15); CHLORIDE 108 mmol/L (98-107); CREATININE 0.58 mg/dL (0.55-1.02)
[2020-12-31 16:56] LABS: ALKALINE PHOSPHATASE 93 U/L (45-117); BILIRUBIN,TOTAL 0.3 mg/dL (0.2-1.0); TOTAL PROTEIN 8.1 g/dL (6.4-8.2); TROPONIN I < 0.015 ng/mL (0.000-0.045)
--- NOTE | 2020-12-31 17:02 | NUR ---
PT RESTING IN [facility]. MEDICATED PER JUL.
[2020-12-31] MEDS ORDERED: AMPICILLIN/SULBACTAM 3 GM in SODIUM CHLORIDE 0.9% 100 ML IV ONE (18:00)
[2020-12-31] MEDS ORDERED: SODIUM CHLORIDE FLUSH 10ML SYR IVF PRN (18:30)
[2020-12-31] MEDS ORDERED: VANCOMYCIN 1,600 MG in SODIUM CHLORIDE 0.9% 250 ML IVPB SCH (19:30)
[2020-12-31] MEDS ORDERED: VANCOMYCIN PER PHARMACY MC PRN (19:30)
[2020-12-31] MEDS: HYDROmorphone 2 MG/ML, 1ML IVPush PRN ×3 (19:55→23:17)
[2020-12-31] MEDS ORDERED: PHARMACOKINETIC CONSULTATION MC ONE (20:00)
[2020-12-31] MEDS ORDERED: VANCOMYCIN 2,500 MG in SODIUM CHLORIDE 0.9% 500 ML IV ONE (20:00)
[2020-12-31] MEDS ORDERED: PHARMACOKINETIC MONITORING MC PRN (20:00)
[2020-12-31 20:06] VITALS: BP 156/96
[2020-12-31] MEDS ORDERED: HYDROmorphone 1 MG/ML, 1ML INJ ONE (20:23)
[2020-12-31] MEDS ORDERED: ACETAMINOPHEN 325 MG TABLET PO SCH (21:00)
[2020-12-31] MEDS: LACTATED RINGERS 1,000 ML IV SCH (21:21)
[2021-01-01] MEDS ORDERED: CATHFLO-ALTEPLASE 2 MG/2 ML CATHFLUSH ONE
[2021-01-01] MEDS: AMPICILLIN/SULBACTAM 3 GM in SODIUM CHLORIDE 0.9% 100 ML IV SCH ×4 (00:25→20:26)
[2021-01-01 00:50] VITALS: BP 137/87
[2021-01-01] MEDS: LACTATED RINGERS 1,000 ML IV SCH ×3 (02:10→23:41)
[2021-01-01] MEDS: HYDROmorphone 2 MG/ML, 1ML IVPush PRN ×6 (03:29→23:41)
[2021-01-01 05:14] LABS: BASOPHILS % (AUTO) 1 % (0-1); EOSINOPHILS % (AUTO) 1 % (1-7); LYMPHOCYTES % (AUTO) 22 % (22-44); MEAN CORPUSCULAR HEMOGLOBIN 31.3 pg (27.0-34.8); MEAN CORPUSCULAR HGB CONC 33.9 g/dL (32.4-35.8); MEAN PLATELET VOLUME 7.4 fL (7.4-10.4); MONOCYTES % (AUTO) 10 % (2-9); NEUTROPHILS % (AUTO) 66 % (42-75); PLATELET COUNT 555 x10^3/uL (130-400); RED BLOOD COUNT 3.84 x10^6/uL (3.82-5.3); RED CELL DISTRIBUTION WIDTH 13.7 % (9.6-15.2)
[2021-01-01] MEDS: VANCOMYCIN 1,800 MG in SODIUM CHLORIDE 0.9% 250 ML IV SCH ×2 (05:21→14:15)
[2021-01-01 05:25] LABS: ANION GAP 6 mmol/L (5-15); CALCIUM 8.3 mg/dL (8.5-10.1); CHLORIDE 106 mmol/L (98-107); CREATININE 0.53 mg/dL (0.55-1.02)
[2021-01-01] MEDS ORDERED: BUSP10TA PO (06:13)
[2021-01-01] MEDS ORDERED: BUPR-86 PO (06:13)
[2021-01-01] MEDS ORDERED: AMIO200T42 PO (06:13)
[2021-01-01] MEDS ORDERED: LACT1CAP35 PO (06:13)
[2021-01-01] MEDS ORDERED: METO75TA PO (06:13)
[2021-01-01] MEDS ORDERED: APIX5TAB PO (06:13)
[2021-01-01] MEDS ORDERED: PRUC2TAB PO (06:15)
[2021-01-01] MEDS ORDERED: OXYB5TAB10 PO (06:16)
[2021-01-01 07:22] VITALS: BP 146/91
[2021-01-01] MEDS: SENNA/DOCUSATE TABLET PO SCH (08:24)
[2021-01-01] MEDS: ACETAMINOPHEN 500 MG TABLET PO SCH ×3 (08:24→23:45)
[2021-01-01] MEDS: POLYETHYLENE GLYCOL 17 GM PACKET PO SCH (08:24)
[2021-01-01] MEDS ORDERED: APIXABAN 5 MG TABLET PO SCH (09:00)
[2021-01-01] MEDS: ONDANSETRON 2MG/ML, 2ML IVPush PRN ×2 (12:04→18:17)
[2021-01-01 13:46] VITALS: BP 141/84
[2021-01-01 19:09] VITALS: BP 159/96
[2021-01-01] MEDS: APIXABAN 5 MG TABLET PO SCH (20:26)
[2021-01-01] MEDS: METOPROLOL TARTRATE 25 MG TAB PO SCH (20:27)
[2021-01-01] MEDS: FAMOTIDINE 20 MG TABLET PO SCH (20:27)
[2021-01-01] MEDS ORDERED: FAMOTIDINE 20 MG/2 ML IVPush SCH (21:00)
[2021-01-01] MEDS: ONDANSETRON ODT 4 MG PO PRN (22:06)
[2021-01-01] MEDS: OXCARBAZEPINE 150 MG TABLET PO SCH (23:45)
[2021-01-02] MEDS: VANCOMYCIN 1,800 MG in SODIUM CHLORIDE 0.9% 250 ML IV SCH ×3 (01:06→18:27)
[2021-01-02 01:18] VITALS: BP 130/87
[2021-01-02] MEDS: AMPICILLIN/SULBACTAM 3 GM in SODIUM CHLORIDE 0.9% 100 ML IV SCH ×4 (03:04→21:10)
[2021-01-02] MEDS: HYDROmorphone 2 MG/ML, 1ML IVPush PRN ×6 (03:04→22:10)
[2021-01-02] MEDS: LACTATED RINGERS 1,000 ML IV SCH ×2 (04:20→18:33)
[2021-01-02] MEDS: METOPROLOL TARTRATE 25 MG TAB PO SCH ×2 (06:08→18:27)
[2021-01-02] MEDS: LEVOTHYROXINE 75 MCG TABLET PO SCH (06:09)
[2021-01-02] MEDS: ONDANSETRON 2MG/ML, 2ML IVPush PRN (06:19)
[2021-01-02 06:32] LABS: CHLORIDE 104 mmol/L (98-107)
[2021-01-02 06:41] LABS: ANION GAP 8 mmol/L (5-15); BASOPHILS % (AUTO) 1 % (0-1); CALCIUM 8.3 mg/dL (8.5-10.1); CREATININE 0.55 mg/dL (0.55-1.02); EOSINOPHILS % (AUTO) 2 % (1-7); LYMPHOCYTES % (AUTO) 26 % (22-44); MEAN CORPUSCULAR HEMOGLOBIN 31.2 pg (27.0-34.8); MEAN CORPUSCULAR HGB CONC 34.4 g/dL (32.4-35.8); MEAN PLATELET VOLUME 7.4 fL (7.4-10.4); MONOCYTES % (AUTO) 9 % (2-9); NEUTROPHILS % (AUTO) 63 % (42-75); PLATELET COUNT 587 x10^3/uL (130-400); RED BLOOD COUNT 4.05 x10^6/uL (3.82-5.3); RED CELL DISTRIBUTION WIDTH 13.1 % (9.6-15.2)
[2021-01-02 07:06] VITALS: BP 147/92
[2021-01-02] MEDS: ESOMEPRAZOLE 40 MG PO SCH (08:52)
[2021-01-02] MEDS: POLYETHYLENE GLYCOL 17 GM PACKET PO SCH (09:00)
[2021-01-02] MEDS: SENNA/DOCUSATE TABLET PO SCH (09:00)
[2021-01-02] MEDS: FAMOTIDINE 20 MG TABLET PO SCH ×2 (09:00→21:11)
[2021-01-02] MEDS: ACETAMINOPHEN 500 MG TABLET PO SCH ×3 (10:48→21:11)
[2021-01-02] MEDS: APIXABAN 5 MG TABLET PO SCH ×2 (10:48→21:11)
[2021-01-02 13:10] VITALS: BP 151/86
[2021-01-02] MEDS: LACTOBACILLUS CHEW TABLET PO SCH ×2 (16:43→21:11)
[2021-01-02 18:49] VITALS: BP 152/88
[2021-01-02] MEDS: OXCARBAZEPINE 150 MG TABLET PO SCH (21:11)
[2021-01-03 00:11] VITALS: BP 143/88
[2021-01-03] MEDS: HYDROmorphone 2 MG/ML, 1ML IVPush PRN ×7 (01:30→21:58)
[2021-01-03] MEDS: AMPICILLIN/SULBACTAM 3 GM in SODIUM CHLORIDE 0.9% 100 ML IV SCH ×4 (04:03→21:58)
[2021-01-03] MEDS: LACTATED RINGERS 1,000 ML IV SCH ×3 (04:04→21:58)
[2021-01-03 04:59] LABS: BASOPHILS % (AUTO) 1 % (0-1); EOSINOPHILS % (AUTO) 2 % (1-7); LYMPHOCYTES % (AUTO) 34 % (22-44); MONOCYTES % (AUTO) 11 % (2-9); NEUTROPHILS % (AUTO) 52 % (42-75); PLATELET COUNT 535 x10^3/uL (130-400); RED BLOOD COUNT 3.89 x10^6/uL (3.82-5.3)
[2021-01-03] MEDS: METOPROLOL TARTRATE 25 MG TAB PO SCH ×2 (06:11→17:54)
[2021-01-03] MEDS: LACTOBACILLUS CHEW TABLET PO SCH ×4 (06:11→21:57)
[2021-01-03] MEDS: LEVOTHYROXINE 75 MCG TABLET PO SCH (06:11)
[2021-01-03] MEDS: ESOMEPRAZOLE 40 MG PO SCH (07:30)
[2021-01-03 07:45] VITALS: BP_SYST 156; BP_SYST 157; BP_DIAS 102; BP_DIAS 89
[2021-01-03] MEDS: SENNA/DOCUSATE TABLET PO SCH (08:22)
[2021-01-03] MEDS: ACETAMINOPHEN 500 MG TABLET PO SCH ×3 (08:22→21:58)
[2021-01-03] MEDS: FAMOTIDINE 20 MG TABLET PO SCH ×2 (08:22→21:58)
[2021-01-03] MEDS: POLYETHYLENE GLYCOL 17 GM PACKET PO SCH ×2 (08:22→08:32)
[2021-01-03 09:08] LABS: ALBUMIN 2.9 g/dL (3.4-5.0); ANION GAP 11 mmol/L (5-15); CALCIUM 8.5 mg/dL (8.5-10.1); CHLORIDE 104 mmol/L (98-107); CREATININE 0.49 mg/dL (0.55-1.02)
[2021-01-03] MEDS: ONDANSETRON ODT 4 MG PO PRN (10:15)
[2021-01-03 12:33] LABS: VANCOMYCIN,TROUGH 9.8 mcg/mL (5.0-10.0)
[2021-01-03 13:10] VITALS: BP_SYST 153; BP_SYST 155; BP_DIAS 95; BP_DIAS 96
[2021-01-03 17:53] VITALS: BP 154/87
[2021-01-03 20:10] VITALS: BP 149/95
[2021-01-03] MEDS: OXCARBAZEPINE 150 MG TABLET PO SCH (21:58)
[2021-01-04 02:12] VITALS: BP 157/104
[2021-01-04] MEDS: HYDROmorphone 2 MG/ML, 1ML IVPush PRN ×7 (02:23→22:34)
[2021-01-04] MEDS: AMPICILLIN/SULBACTAM 3 GM in SODIUM CHLORIDE 0.9% 100 ML IV SCH ×4 (04:04→22:33)
[2021-01-04 04:29] LABS: BASOPHILS % (AUTO) 1 % (0-1); EOSINOPHILS % (AUTO) 2 % (1-7); LYMPHOCYTES % (AUTO) 26 % (22-44); MEAN CORPUSCULAR HEMOGLOBIN 31.9 pg (27.0-34.8); MEAN CORPUSCULAR HGB CONC 35.2 g/dL (32.4-35.8); MEAN PLATELET VOLUME 7.1 fL (7.4-10.4); MONOCYTES % (AUTO) 9 % (2-9); NEUTROPHILS % (AUTO) 63 % (42-75); PLATELET COUNT 523 x10^3/uL (130-400); RED BLOOD COUNT 3.81 x10^6/uL (3.82-5.3); RED CELL DISTRIBUTION WIDTH 13.3 % (9.6-15.2)
[2021-01-04 04:39] LABS: ALBUMIN 2.9 g/dL (3.4-5.0); ANION GAP 5 mmol/L (5-15); CALCIUM 8.4 mg/dL (8.5-10.1); CHLORIDE 105 mmol/L (98-107); CREATININE 0.49 mg/dL (0.55-1.02)
[2021-01-04] MEDS: METOPROLOL TARTRATE 25 MG TAB PO SCH ×2 (05:51→17:51)
[2021-01-04] MEDS: LEVOTHYROXINE 75 MCG TABLET PO SCH (05:52)
[2021-01-04] MEDS: LACTOBACILLUS CHEW TABLET PO SCH ×4 (05:52→21:22)
[2021-01-04] MEDS: ESOMEPRAZOLE 40 MG PO SCH (07:30)
[2021-01-04] MEDS: SENNA/DOCUSATE TABLET PO SCH (08:00)
[2021-01-04] MEDS: POLYETHYLENE GLYCOL 17 GM PACKET PO SCH (08:00)
[2021-01-04] MEDS: FAMOTIDINE 20 MG TABLET PO SCH ×2 (08:00→21:23)
[2021-01-04] MEDS: ACETAMINOPHEN 500 MG TABLET PO SCH ×3 (08:00→21:22)
[2021-01-04] MEDS: LACTATED RINGERS 1,000 ML IV SCH ×3 (08:01→20:50)
[2021-01-04 08:06] VITALS: BP 143/89
[2021-01-04 14:00] VITALS: BP 142/86
[2021-01-04] MEDS: METOCLOPRAMIDE 10MG TABLET PO SCH ×2 (16:20→21:23)
[2021-01-04 20:14] VITALS: BP 136/84
[2021-01-04] MEDS: OXCARBAZEPINE 150 MG TABLET PO SCH (21:23)
[2021-01-05] MEDS: HYDROmorphone 2 MG/ML, 1ML IVPush PRN ×6 (02:10→23:39)
[2021-01-05 02:14] VITALS: BP 151/83
[2021-01-05] MEDS: LACTATED RINGERS 1,000 ML IV SCH ×4 (04:12→23:30)
[2021-01-05] MEDS: AMPICILLIN/SULBACTAM 3 GM in SODIUM CHLORIDE 0.9% 100 ML IV SCH ×4 (04:14→23:27)
[2021-01-05] MEDS: LACTOBACILLUS CHEW TABLET PO SCH ×4 (06:00→21:44)
[2021-01-05] MEDS: METOCLOPRAMIDE 10MG TABLET PO SCH ×4 (06:01→21:44)
[2021-01-05] MEDS: ESOMEPRAZOLE 40 MG PO SCH (06:01)
[2021-01-05] MEDS: METOPROLOL TARTRATE 25 MG TAB PO SCH ×2 (06:06→17:25)
[2021-01-05 06:31] VITALS: BP 146/94
[2021-01-05] MEDS ORDERED: ISOSULFAN BLUE 10 MG/ML, 5ML IV ONE (07:17)
[2021-01-05] MEDS ORDERED: EPINEPHRINE 1 MG/ML, 1ML ONE (07:17)
[2021-01-05] MEDS ORDERED: BUPIVACAINE/PF 0.5% ONE (07:17)
[2021-01-05] MEDS ORDERED: MIDAZOLAM 1 MG/ML, 2ML ONE (07:20)
[2021-01-05] MEDS ORDERED: PROPOFOL 50 ML ONE (07:20)
[2021-01-05] MEDS ORDERED: FENTANYL PF 250 MCG/5ML ONE (07:20)
[2021-01-05] MEDS ORDERED: PROMETHAZINE 25 MG/ML, 1ML IVPush PRN (08:00)
[2021-01-05] MEDS ORDERED: HYDROmorphone 1 MG/ML, 1ML INJ IVPush PRN (08:00)
[2021-01-05] MEDS ORDERED: OXYcodone 5 MG/5 ML ORAL.SOL UDC PO PRN (08:00)
[2021-01-05] MEDS ORDERED: LABETALOL 5MG/ML, 20ML IV PRN (08:00)
[2021-01-05] MEDS ORDERED: PANTOPRAZOLE 40 MG IV IVPush ONE (08:00)
[2021-01-05] MEDS ORDERED: EPHEDRINE 50 MG/ML, 1ML IM PRN (08:00)
[2021-01-05] MEDS ORDERED: MEPERIDINE/PF 25MG/0.5ML IVPush PRN (08:00)
[2021-01-05] MEDS ORDERED: DIPHENHYDRAMINE 50 MG/ML, 1ML IVPush PRN (08:00)
[2021-01-05] MEDS ORDERED: METOCLOPRAMIDE 5 MG/ML, 2ML IVPush ONE (08:00)
[2021-01-05] MEDS ORDERED: EPHEDRINE 50 MG/ML, 1ML IVPush PRN (08:00)
[2021-01-05] MEDS ORDERED: ONDANSETRON 2MG/ML, 2ML IVPush PRN (08:00)
[2021-01-05] MEDS ORDERED: DIAZEPAM 5 MG/ML, 2ML IVPush PRN (08:00)
[2021-01-05] MEDS ORDERED: ONDANSETRON 2MG/ML, 2ML ONE (08:18)
[2021-01-05] MEDS ORDERED: PROPOFOL 10 MG/ML, 20ML ONE ×3 (08:19)
[2021-01-05] MEDS ORDERED: BUPIVACAINE/PF-EPI 0.5% 1:200K IM ONE (08:42)
[2021-01-05] MEDS: POLYETHYLENE GLYCOL 17 GM PACKET PO SCH (09:00)
[2021-01-05] MEDS: SENNA/DOCUSATE TABLET PO SCH (09:00)
[2021-01-05] MEDS: FAMOTIDINE 20 MG TABLET PO SCH ×2 (09:00→21:44)
[2021-01-05] MEDS: ACETAMINOPHEN 500 MG TABLET PO SCH ×3 (09:00→21:44)
[2021-01-05] MEDS ORDERED: ACETAMINOPHEN 650 MG/20.3 ML UDC ONE (09:56)
[2021-01-05] MEDS ORDERED: OXYcodone 5 MG/5 ML ORAL.SOL UDC ONE (09:57)
[2021-01-05] MEDS ORDERED: FENTANYL PF 100 MCG/2ML ONE (09:57)
[2021-01-05] MEDS: FENTANYL PF 100 MCG/2ML IV PRN ×3 (10:00→10:10)
[2021-01-05] MEDS ORDERED: HYDROmorphone 1 MG/ML, 1ML INJ ONE (10:10)
[2021-01-05] MEDS ORDERED: ACETAMINOPHEN 325 MG TABLET PO PRN (10:30)
[2021-01-05 10:53] VITALS: BP 127/94
[2021-01-05] MEDS: LEVOTHYROXINE 75 MCG TABLET PO SCH (11:04)
[2021-01-05 13:20] VITALS: BP 106/73
[2021-01-05 17:26] VITALS: BP 137/87
[2021-01-05 20:17] VITALS: BP 120/80
[2021-01-05] MEDS: OXCARBAZEPINE 150 MG TABLET PO SCH (21:44)
[2021-01-06 00:13] VITALS: BP 127/85
[2021-01-06] MEDS: HYDROmorphone 2 MG/ML, 1ML IVPush PRN ×6 (03:50→20:47)
[2021-01-06 03:57] VITALS: BP 136/93
[2021-01-06] MEDS: AMPICILLIN/SULBACTAM 3 GM in SODIUM CHLORIDE 0.9% 100 ML IV SCH ×4 (05:32→23:04)
[2021-01-06] MEDS: LACTOBACILLUS CHEW TABLET PO SCH ×4 (05:33→20:35)
[2021-01-06] MEDS: METOPROLOL TARTRATE 25 MG TAB PO SCH ×2 (05:33→17:31)
[2021-01-06] MEDS: LEVOTHYROXINE 75 MCG TABLET PO SCH (05:33)
[2021-01-06] MEDS: LACTATED RINGERS 1,000 ML IV SCH ×3 (06:10→19:30)
[2021-01-06] MEDS: POLYETHYLENE GLYCOL 17 GM PACKET PO SCH (07:13)
[2021-01-06] MEDS: SENNA/DOCUSATE TABLET PO SCH (07:14)
[2021-01-06] MEDS: ESOMEPRAZOLE 40 MG PO SCH (07:30)
[2021-01-06] MEDS: FAMOTIDINE 20 MG TABLET PO SCH ×2 (07:58→20:36)
[2021-01-06] MEDS: METOCLOPRAMIDE 10MG TABLET PO SCH ×4 (07:58→20:35)
[2021-01-06] MEDS: ACETAMINOPHEN 500 MG TABLET PO SCH ×3 (07:58→20:35)
[2021-01-06 08:00] VITALS: BP 133/88
[2021-01-06 10:14] LABS: BASOPHILS % (AUTO) 1 % (0-1); EOSINOPHILS % (AUTO) 2 % (1-7); LYMPHOCYTES % (AUTO) 36 % (22-44); MEAN CORPUSCULAR HEMOGLOBIN 31.6 pg (27.0-34.8); MEAN CORPUSCULAR HGB CONC 34.6 g/dL (32.4-35.8); MEAN PLATELET VOLUME 6.9 fL (7.4-10.4); MONOCYTES % (AUTO) 10 % (2-9); NEUTROPHILS % (AUTO) 51 % (42-75); PLATELET COUNT 457 x10^3/uL (130-400); RED BLOOD COUNT 3.36 x10^6/uL (3.82-5.3); RED CELL DISTRIBUTION WIDTH 13.2 % (9.6-15.2)
[2021-01-06 10:26] LABS: ALBUMIN 2.6 g/dL (3.4-5.0); ANION GAP 7 mmol/L (5-15); CHLORIDE 105 mmol/L (98-107); CREATININE 0.52 mg/dL (0.55-1.02)
[2021-01-06 11:53] LABS: CLOSTRIDIUM DIFFICILE ANTIGEN NEGATIVE; CLOSTRIDIUM DIFFICILE TOXIN NEGATIVE (Negative)
[2021-01-06 13:36] VITALS: BP 145/86
[2021-01-06] MEDS ORDERED: LOPERAMIDE 2 MG CAPSULE PO PRN (17:30)
[2021-01-06 18:42] VITALS: BP 138/85
[2021-01-06 20:00] VITALS: BP 131/83
[2021-01-06] MEDS: APIXABAN 5 MG TABLET PO SCH (20:35)
[2021-01-06] MEDS: OXCARBAZEPINE 150 MG TABLET PO SCH (20:35)
[2021-01-06] MEDS: BUSPIRONE 10 MG TABLET PO SCH (20:35)
[2021-01-07] MEDS: HYDROmorphone 2 MG/ML, 1ML IVPush PRN ×6 (00:06→15:45)
[2021-01-07] MEDS: LACTATED RINGERS 1,000 ML IV SCH ×2 (02:10→09:23)
[2021-01-07 03:33] VITALS: BP 137/91
[2021-01-07] MEDS: AMPICILLIN/SULBACTAM 3 GM in SODIUM CHLORIDE 0.9% 100 ML IV SCH (05:39)
[2021-01-07] MEDS: ONDANSETRON 2MG/ML, 2ML IVPush PRN (05:50)
[2021-01-07 05:54] LABS: HCT (SEDRATE) 30.9 % (34.6-47.8)
[2021-01-07] MEDS: ESOMEPRAZOLE 40 MG PO SCH (05:57)
[2021-01-07 06:02] LABS: CHLORIDE 104 mmol/L (98-107)
[2021-01-07 06:22] LABS: ALANINE AMINOTRANSFERASE 24 U/L (12-78); ALBUMIN 2.6 g/dL (3.4-5.0); ALKALINE PHOSPHATASE 91 U/L (45-117); ANION GAP 6 mmol/L (5-15); BILIRUBIN,TOTAL 0.2 mg/dL (0.2-1.0); CALCIUM 7.9 mg/dL (8.5-10.1); CREATININE 0.51 mg/dL (0.55-1.02); TOTAL PROTEIN 6.9 g/dL (6.4-8.2)
[2021-01-07 06:53] VITALS: BP 129/79
[2021-01-07] MEDS: LEVOTHYROXINE 75 MCG TABLET PO SCH (07:19)
[2021-01-07] MEDS: LACTOBACILLUS CHEW TABLET PO SCH ×3 (07:19→18:16)
[2021-01-07] MEDS: METOPROLOL TARTRATE 25 MG TAB PO SCH ×2 (07:19→18:17)
[2021-01-07 08:46] LABS: BASOPHILS % (AUTO) 1 % (0-1); EOSINOPHILS % (AUTO) 3 % (1-7); LYMPHOCYTES % (AUTO) 44 % (22-44); MEAN CORPUSCULAR HEMOGLOBIN 31.5 pg (27.0-34.8); MEAN CORPUSCULAR HGB CONC 34.7 g/dL (32.4-35.8); MEAN PLATELET VOLUME 7.3 fL (7.4-10.4); MONOCYTES % (AUTO) 10 % (2-9); NEUTROPHILS % (AUTO) 41 % (42-75); PLATELET COUNT 456 x10^3/uL (130-400); RED BLOOD COUNT 3.36 x10^6/uL (3.82-5.3); RED CELL DISTRIBUTION WIDTH 13.2 % (9.6-15.2)
[2021-01-07] MEDS: SENNA/DOCUSATE TABLET PO SCH (09:00)
[2021-01-07] MEDS: POLYETHYLENE GLYCOL 17 GM PACKET PO SCH (09:00)
[2021-01-07] MEDS: POTASSIUM CHLORIDE 20 MEQ TAB.ER.PRT PO SCH ×2 (09:18→13:14)
[2021-01-07] MEDS: ACETAMINOPHEN 500 MG TABLET PO SCH ×2 (09:18→18:17)
[2021-01-07] MEDS: BUSPIRONE 10 MG TABLET PO SCH (09:18)
[2021-01-07] MEDS: APIXABAN 5 MG TABLET PO SCH (09:20)
[2021-01-07] MEDS: METOCLOPRAMIDE 10MG TABLET PO SCH ×3 (09:20→18:16)
[2021-01-07] MEDS: FAMOTIDINE 20 MG TABLET PO SCH (09:20)
[2021-01-07 13:47] VITALS: BP 136/88
[2021-01-07] MEDS ORDERED: HYDROmorphone 2MG TABLET PO PRN (17:30)
[2021-01-07] MEDS ORDERED: ACID1TAB7 PO (17:37)
[2021-01-07] MEDS ORDERED: HYDR2TAB40 PO (17:37)
== END 2021-01-07 19:10 | disposition home health service (06) | DRG 580 ==
LOC: ED 15:42 → EDIP 18:26 → 4NW 20:06
PROVIDERS: ADMIT Student in an Organized Health Care Education/Training Program; ATTEND Internal Medicine
PROC: 0KT Muscles, Resection (ICD-10-PCS; 2021-01-05)
PROC: 07B60ZX Excision of Left Axillary Lymphatic, Open Approach, Diagnostic (ICD-10-PCS; 2021-01-05)
PROC: 0HTU0ZZ Resection of Left Breast, Open Approach (ICD-10-PCS; principal; 2021-01-05 07:30)
DX: L03.313 Cellulitis of chest wall (principal); C85.90 Non-Hodgkin lymphoma, unspecified, unspecified site; A04.72 Enterocolitis due to Clostridium difficile, not specified as recurrent; C92.10 Chronic myeloid leukemia, BCR/ABL-positive, not having achieved remission; D68.69 Other thrombophilia; Z94.81 Bone marrow transplant status; Z94.84 Stem cells transplant status; C50.312 Malignant neoplasm of lower-inner quadrant of left female breast; Z20.822 Contact with and (suspected) exposure to COVID-19; N61.0 Mastitis without abscess; D63.8 Anemia in other chronic diseases classified elsewhere; E78.5 Hyperlipidemia, unspecified; E21.0 Primary hyperparathyroidism; E87.6 Hypokalemia; E88.09 Other disorders of plasma-protein metabolism, not elsewhere classified; F17.200 Nicotine dependence, unspecified, uncomplicated; F31.9 Bipolar disorder, unspecified; M54.9 Dorsalgia, unspecified; G89.29 Other chronic pain; I27.20 Pulmonary hypertension, unspecified; I10 Essential (primary) hypertension; I48.91 Unspecified atrial fibrillation; K31.84 Gastroparesis; F41.9 Anxiety disorder, unspecified; G43.909 Migraine, unspecified, not intractable, without status migrainosus; K21.9 Gastro-esophageal reflux disease without esophagitis; M79.10 Myalgia, unspecified site; Z17.1 Estrogen receptor negative status [ER-]; Z80.6 Family history of leukemia; Z90.710 Acquired absence of both cervix and uterus; Z79.899 Other long term (current) drug therapy; Z79.891 Long term (current) use of opiate analgesic; Z79.01 Long term (current) use of anticoagulants; Z88.8 Allergy status to other drugs, medicaments and biological substances; Z88.1 Allergy status to other antibiotic agents; Z91.041 Radiographic dye allergy status; Z91.040 Latex allergy status; Z91.09 Other allergy status, other than to drugs and biological substances; Z88.5 Allergy status to narcotic agent
CPT/HCPCS: 36415; 96374; 96375; 96376; 99285; S0020; 71045; 71250; 80048; 80053; 80069; 80202; 83605; 83735; 84484; 85025; 85651; 86140; 87040; 87081; 87324; 87635; 88307; 88333; 93005; C1729; G0378; J0171; J0295; J1170; J2250; J2405; J2704; J2997; J3010; J3370; Q0162; C9113; J2765; J7040; J7050; J7120; Q0181

== ENCOUNTER 2021-01-10 12:02 | Inpatient (IN) | payer OTHER, MEDICARE ==
[~2021-01-10] VITALS: Ht 170.2 cm; Wt 104.3 kg
[~2021-01-10 12:02] MED LIST changes: +ACID1TAB7 PO; +AMIO200T42 PO; +APIX5TAB PO; +BUPR-86 PO; +HYDR2TAB40 PO; +LACT1CAP35 PO; +METO75TA PO; +OXYB5TAB10 PO; +PRUC2TAB PO
--- NOTE | 2021-01-10 12:20 | NUR ---
EKG IN TRIAGE
[2021-01-10 12:53] LABS: BASOPHILS % (AUTO) 1 % (0-1); EOSINOPHILS % (AUTO) 4 % (1-7); LYMPHOCYTES % (AUTO) 40 % (22-44); MONOCYTES % (AUTO) 9 % (2-9); NEUTROPHILS % (AUTO) 46 % (42-75); PLATELET COUNT 629 x10^3/uL (130-400); RED BLOOD COUNT 4.28 x10^6/uL (3.82-5.3); RED CELL DISTRIBUTION WIDTH 13.4 % (9.6-15.2)
[2021-01-10 13:01] LABS: ALBUMIN 3.7 g/dL (3.4-5.0); ANION GAP 4 mmol/L (5-15); CALCIUM 8.9 mg/dL (8.5-10.1); CHLORIDE 110 mmol/L (98-107)
[2021-01-10 13:05] LABS: ALANINE AMINOTRANSFERASE 26 U/L (12-78); ALKALINE PHOSPHATASE 80 U/L (45-117); BILIRUBIN,TOTAL 0.3 mg/dL (0.2-1.0); CREATININE 0.75 mg/dL (0.55-1.02); TOTAL PROTEIN 9.2 g/dL (6.4-8.2)
--- NOTE | 2021-01-10 14:48 | NUR ---
PATIENT AMBULATORY TO ROOM AT THIS TIME.
--- NOTE | 2021-01-10 15:07 | NUR ---
THIS IS A 50 YR OLD FEMALE WITH RECENT ADMISSION FOR SEPSIS. HX OF MULTIPLE CANCERS RECENT MASTECTOMY
--- NOTE | 2021-01-10 15:45 | NUR ---
BREAK RN: PT RESTING IN ROOM. FAMILY AT BEDSIDE. PT GIVEN A PILLOW. VS STABLE. NO ACUTE DISTRESS NOTED. WILL CONTINUE TO MONITOR WHILE PRIMARY RN IS ON BREAK.
[2021-01-10] MEDS ORDERED: SODIUM CHLORIDE 0.9% 1,000ML IVBOLUS ONE (17:00)
[2021-01-10] MEDS ORDERED: MORPHINE SULFATE 4 MG/ML, 1ML IVPush PRN (17:00)
[2021-01-10] MEDS ORDERED: SODIUM CHLORIDE 0.9% 1,000 ML IV ONE (17:00)
[2021-01-10] MEDS ORDERED: SODIUM CHLORIDE FLUSH 10ML SYR IVF ONE (17:00)
[2021-01-10] MEDS ORDERED: ONDANSETRON 2MG/ML, 2ML IVPush ONE (17:00)
[2021-01-10] MEDS ORDERED: HYDROmorphone 2 MG/ML, 1ML ONE ×2 (17:05→19:47)
[2021-01-10] MEDS ORDERED: ONDANSETRON 2MG/ML, 2ML ONE (17:06)
[2021-01-10] MEDS ORDERED: HYDROmorphone 1 MG/ML, 1ML INJ IV ONE ×2 (17:30→20:00)
[2021-01-10] MEDS ORDERED: SODIUM CHLORIDE FLUSH 10ML SYR IVF PRN (19:00)
--- NOTE | 2021-01-10 19:12 | NUR ---
Quick cath urine specimen obtained; will be walked to lab. Pt's labia reddened; pt c/o itchiness and possible vaginal infection; no vag discharge noted.
[2021-01-10 19:35] LABS: MICROSCOPIC NOT IND
[2021-01-10] MEDS ORDERED: LABETALOL 5MG/ML, 20ML IVPush PRN (20:30)
[2021-01-10] MEDS ORDERED: MELATONIN 5 MG TABLET PO PRN (20:30)
[2021-01-10] MEDS ORDERED: ACETAMINOPHEN 325 MG TABLET PO PRN (20:30)
[2021-01-10] MEDS ORDERED: POLYETHYLENE GLYCOL 17 GM PACKET PO PRN (20:30)
[2021-01-10] MEDS ORDERED: OXYcodone IR 5MG TABLET PO PRN (20:30)
[2021-01-10] MEDS ORDERED: ENOXAPARIN 40 MG/0.4 ML SQ SCH (21:00)
[2021-01-10] MEDS ORDERED: METO10TA82 PO (21:58)
[2021-01-10] MEDS: ONDANSETRON 2MG/ML, 2ML IVPush PRN (22:06)
[2021-01-10] MEDS: METOCLOPRAMIDE 5 MG/ML, 2ML IVPush PRN (23:35)
[2021-01-10] MEDS: AMPICILLIN/SULBACTAM 3 GM in SODIUM CHLORIDE 0.9% 100 ML IV SCH (23:53)
[2021-01-10] MEDS: HYDROmorphone 2 MG/ML, 1ML IVPush PRN (23:58)
[2021-01-11 01:14] VITALS: BP 137/86
[2021-01-11] MEDS: METOCLOPRAMIDE 5 MG/ML, 2ML IVPush PRN (06:03)
[2021-01-11 06:05] VITALS: BP 139/84
[2021-01-11] MEDS: AMPICILLIN/SULBACTAM 3 GM in SODIUM CHLORIDE 0.9% 100 ML IV SCH ×4 (06:21→23:33)
[2021-01-11] MEDS: HYDROmorphone 2 MG/ML, 1ML IVPush PRN ×2 (06:28→17:56)
[2021-01-11 06:34] LABS: BASOPHILS % (AUTO) 1 % (0-1); EOSINOPHILS % (AUTO) 5 % (1-7); LYMPHOCYTES % (AUTO) 33 % (22-44); MEAN CORPUSCULAR HEMOGLOBIN 31.3 pg (27.0-34.8); MEAN CORPUSCULAR HGB CONC 34.4 g/dL (32.4-35.8); MONOCYTES % (AUTO) 8 % (2-9); NEUTROPHILS % (AUTO) 53 % (42-75); PLATELET COUNT 428 x10^3/uL (130-400); RED BLOOD COUNT 3.55 x10^6/uL (3.82-5.3); RED CELL DISTRIBUTION WIDTH 13.4 % (9.6-15.2)
[2021-01-11 06:43] LABS: ANION GAP 6 mmol/L (5-15); CHLORIDE 108 mmol/L (98-107)
[2021-01-11] MEDS: APIXABAN 5 MG TABLET PO SCH ×2 (09:33→20:02)
[2021-01-11] MEDS: BUSPIRONE 10 MG TABLET PO SCH ×2 (09:34→20:02)
[2021-01-11] MEDS: METOCLOPRAMIDE 10MG TABLET PO SCH ×3 (09:34→21:00)
[2021-01-11] MEDS: AMIODARONE 200 MG TABLET PO SCH ×2 (09:34→20:02)
[2021-01-11] MEDS: LEVOTHYROXINE 75 MCG TABLET PO SCH (09:34)
[2021-01-11] MEDS: METOPROLOL TARTRATE 25 MG TAB PO SCH ×2 (09:35→20:01)
[2021-01-11] MEDS: ONDANSETRON 2MG/ML, 2ML IVPush PRN ×2 (09:35→15:19)
[2021-01-11] MEDS: OXYBUTYNIN CHLORIDE 5 MG TABLET PO SCH ×3 (09:35→20:01)
[2021-01-11] MEDS ORDERED: OXCA150T3 PO (12:52)
[2021-01-11 14:00] VITALS: BP 114/74
[2021-01-11] MEDS: HYDROmorphone 2MG TABLET PO PRN ×2 (14:23→21:30)
[2021-01-11] MEDS: ESOMEPRAZOLE 40MG HOMEMEDPO SCH (16:00)
[2021-01-11] MEDS: LACTATED RINGERS 1,000 ML IV SCH ×2 (16:43)
[2021-01-11 18:37] VITALS: BP 134/87
[2021-01-11] MEDS: OXCARBAZEPINE 150 MG TABLET PO SCH (20:01)
[2021-01-12 02:00] VITALS: BP 131/82
[2021-01-12] MEDS: HYDROmorphone 2MG TABLET PO PRN ×3 (04:01→21:37)
[2021-01-12] MEDS: AMPICILLIN/SULBACTAM 3 GM in SODIUM CHLORIDE 0.9% 100 ML IV SCH (05:29)
[2021-01-12] MEDS: ESOMEPRAZOLE 40MG HOMEMEDPO SCH (05:32)
[2021-01-12] MEDS: LACTATED RINGERS 1,000 ML IV SCH ×2 (05:32→19:52)
[2021-01-12] MEDS: HYDROmorphone 2 MG/ML, 1ML IVPush PRN ×2 (06:34→15:51)
[2021-01-12 06:50] VITALS: BP 122/80
[2021-01-12] MEDS: ONDANSETRON 2MG/ML, 2ML IVPush PRN ×2 (07:45→15:51)
[2021-01-12] MEDS: BUSPIRONE 10 MG TABLET PO SCH ×2 (09:37→21:37)
[2021-01-12] MEDS: METOCLOPRAMIDE 10MG TABLET PO SCH ×3 (09:37→21:00)
[2021-01-12] MEDS: APIXABAN 5 MG TABLET PO SCH ×2 (09:37→21:36)
[2021-01-12] MEDS: OXYBUTYNIN CHLORIDE 5 MG TABLET PO SCH ×3 (09:37→21:37)
[2021-01-12] MEDS: AMIODARONE 200 MG TABLET PO SCH ×2 (09:37→21:36)
[2021-01-12] MEDS: METOPROLOL TARTRATE 25 MG TAB PO SCH ×2 (09:37→21:37)
[2021-01-12] MEDS: FAMOTIDINE 20 MG TABLET PO SCH ×2 (09:37→21:36)
[2021-01-12] MEDS: LEVOTHYROXINE 75 MCG TABLET PO SCH (09:38)
[2021-01-12] MEDS: AMOXICILLIN/CLAV 875-125MG TABLET PO SCH ×3 (11:55→21:36)
[2021-01-12 12:42] VITALS: BP 114/71
[2021-01-12 19:21] VITALS: BP 125/79
[2021-01-12] MEDS: METOCLOPRAMIDE 5 MG/ML, 2ML IVPush PRN (20:40)
[2021-01-12] MEDS: OXCARBAZEPINE 150 MG TABLET PO SCH (21:43)
[2021-01-13 01:17] VITALS: BP 113/71
[2021-01-13] MEDS: ESOMEPRAZOLE 40MG HOMEMEDPO SCH (07:10)
[2021-01-13] MEDS: HYDROmorphone 2MG TABLET PO PRN ×3 (07:11→16:03)
[2021-01-13 07:28] VITALS: BP 129/83
[2021-01-13] MEDS: METOPROLOL TARTRATE 25 MG TAB PO SCH (08:41)
[2021-01-13] MEDS: FAMOTIDINE 20 MG TABLET PO SCH (08:41)
[2021-01-13] MEDS: AMOXICILLIN/CLAV 875-125MG TABLET PO SCH ×2 (08:41→16:03)
[2021-01-13] MEDS: BUSPIRONE 10 MG TABLET PO SCH (08:41)
[2021-01-13] MEDS: OXYBUTYNIN CHLORIDE 5 MG TABLET PO SCH ×3 (08:41→16:03)
[2021-01-13] MEDS: LEVOTHYROXINE 75 MCG TABLET PO SCH (08:41)
[2021-01-13] MEDS: APIXABAN 5 MG TABLET PO SCH (08:42)
[2021-01-13] MEDS: METOCLOPRAMIDE 10MG TABLET PO SCH ×2 (08:42→16:03)
[2021-01-13] MEDS: AMIODARONE 200 MG TABLET PO SCH (08:42)
[2021-01-13] MEDS: LACTATED RINGERS 1,000 ML IV SCH (08:42)
[2021-01-13 11:55] LABS: BASOPHILS % (AUTO) 1 % (0-1); EOSINOPHILS % (AUTO) 6 % (1-7); LYMPHOCYTES % (AUTO) 40 % (22-44); MEAN CORPUSCULAR HEMOGLOBIN 30.5 pg (27.0-34.8); MEAN CORPUSCULAR HGB CONC 33.9 g/dL (32.4-35.8); MEAN PLATELET VOLUME 7.1 fL (7.4-10.4); MONOCYTES % (AUTO) 11 % (2-9); NEUTROPHILS % (AUTO) 43 % (42-75); PLATELET COUNT 428 x10^3/uL (130-400); RED BLOOD COUNT 3.76 x10^6/uL (3.82-5.3); RED CELL DISTRIBUTION WIDTH 12.8 % (9.6-15.2)
[2021-01-13 12:09] LABS: ALANINE AMINOTRANSFERASE 50 U/L (12-78); ALBUMIN 3.1 g/dL (3.4-5.0); ANION GAP 6 mmol/L (5-15); CALCIUM 8.5 mg/dL (8.5-10.1); CHLORIDE 108 mmol/L (98-107); CREATININE 0.73 mg/dL (0.55-1.02)
[2021-01-13 12:11] LABS: ALKALINE PHOSPHATASE 120 U/L (45-117); BILIRUBIN,TOTAL 0.4 mg/dL (0.2-1.0); TOTAL PROTEIN 7.4 g/dL (6.4-8.2)
[2021-01-13 12:45] VITALS: BP 124/81
[2021-01-13] MEDS ORDERED: DEXL30CA2 PO (12:56)
[2021-01-13] MEDS ORDERED: AMOX1TAB12 PO (12:56)
[2021-01-13] MEDS ORDERED: ONDA4TAB7 PO (12:57)
[2021-01-13] MEDS ORDERED: BISACODYL 10 MG SUPP PR PRN (13:00)
[2021-01-13] MEDS ORDERED: METHYLNALTREXONE 12 MG/0.6 ML SYR SQ ONE (14:00)
== END 2021-01-13 17:11 | disposition home or self-care (01) | DRG 872 ==
LOC: ED 13:50 → EDIP 18:49 → 4NW 20:57
PROVIDERS: ADMIT Internal Medicine; ATTEND Hospitalist
PROC: 0T9B70Z Drainage of Bladder with Drainage Device, Via Natural or Artificial Opening (ICD-10-PCS; principal; 2021-01-10)
DX: A41.9 Sepsis, unspecified organism (principal); Z94.84 Stem cells transplant status; I48.0 Paroxysmal atrial fibrillation; E66.01 Morbid (severe) obesity due to excess calories; G89.29 Other chronic pain; F31.9 Bipolar disorder, unspecified; I10 Essential (primary) hypertension; I27.20 Pulmonary hypertension, unspecified; I48.91 Unspecified atrial fibrillation; K31.84 Gastroparesis; N61.0 Mastitis without abscess; M54.9 Dorsalgia, unspecified; D63.8 Anemia in other chronic diseases classified elsewhere; G47.33 Obstructive sleep apnea (adult) (pediatric); E88.09 Other disorders of plasma-protein metabolism, not elsewhere classified; Z68.36 Body mass index [BMI] 36.0-36.9, adult; Z79.01 Long term (current) use of anticoagulants; Z85.72 Personal history of non-Hodgkin lymphomas; Z90.49 Acquired absence of other specified parts of digestive tract; Z90.710 Acquired absence of both cervix and uterus
CPT/HCPCS: 10035; 36415; 71045; 76700; 80048; 80053; 81003; 83605; 85025; 87040; 87070; 87205; 93005; 96361; 96374; G0378; J0295; J1170; J2405; J2765; J7030; J7120; Q0181

== ENCOUNTER → 2021-01-16 | Outpatient (CLI) | payer OTHER, MEDICARE ==
[~2021-01-16] MED LIST changes: +AMOX1TAB12 PO; +DEXL30CA2 PO; +ONDA4TAB7 PO; +OXCA150T3 PO
== END | disposition home or self-care (01) ==
LOC: PETCFH 08:33
PROVIDERS: ATTEND Pathology Hematology
DX: C92.11 Chronic myeloid leukemia, BCR/ABL-positive, in remission (principal); R22.2 Localized swelling, mass and lump, trunk
CPT/HCPCS: 78815; A9552

== ENCOUNTER 2021-01-17 10:00 | Inpatient (IN) | payer OTHER, MEDICARE ==
[~2021-01-17] VITALS: Ht 170.2 cm; Wt 111.4 kg
--- NOTE | 2021-01-17 10:38 | NUR ---
PT TO ROOM 35 W/ C/O N/V/D, GEN WEAKNESS, FEVERS LAST NIGHT, AND MID ABDOMINAL AND SUPRAPUBIC ABD PAIN STARTED TODAY.PT STATES SHE TOOK ZOFRAN THIS AM W/O RELIEF. PT STATES SHE WENT TO SEE HER GI SPECIALIST TODAY AND WAS TOLD TO COME TO ED RIGHT AWAY. PT RESTING ON GURNEY. GEN WEAKNESS NOTED. PT STATES DIARRHEA MULTIPLE TIMES. PT STATES SHE WAS RECENTLY ON ABX. PT CURRENTLY ATTEMPTING TO PROVIDE UA AND STOOL SAMPLE AT THIS TIME.
--- NOTE | 2021-01-17 11:00 | NUR ---
PT RESTING ON GURNEY. NADN. BETTENCOURT.
[2021-01-17] MEDS ORDERED: SODIUM CHLORIDE FLUSH 10ML SYR IVF ONE (11:30)
[2021-01-17] MEDS ORDERED: PANTOPRAZOLE 40 MG IV IVPush ONE (11:30)
[2021-01-17] MEDS ORDERED: SODIUM CHLORIDE 0.9% 1,000ML IVBOLUS ONE (11:30)
[2021-01-17] MEDS ORDERED: ONDANSETRON 2MG/ML, 2ML IVPush ONE ×2 (11:30→14:00)
[2021-01-17 11:37] LABS: CLOSTRIDIUM DIFFICILE ANTIGEN NEGATIVE; CLOSTRIDIUM DIFFICILE TOXIN NEGATIVE (Negative)
[2021-01-17] MEDS ORDERED: ONDANSETRON 2MG/ML, 2ML ONE ×2 (11:40→13:56)
[2021-01-17] MEDS ORDERED: PANTOPRAZOLE 40 MG IV ONE (11:40)
[2021-01-17 12:07] LABS: BASOPHILS % (AUTO) 1 % (0-1); EOSINOPHILS % (AUTO) 4 % (1-7); LYMPHOCYTES % (AUTO) 33 % (22-44); MEAN CORPUSCULAR HEMOGLOBIN 30.3 pg (27.0-34.8); MEAN PLATELET VOLUME 7.3 fL (7.4-10.4); MONOCYTES % (AUTO) 5 % (2-9); NEUTROPHILS % (AUTO) 57 % (42-75); PLATELET COUNT 393 x10^3/uL (130-400); RED BLOOD COUNT 4.14 x10^6/uL (3.82-5.3); RED CELL DISTRIBUTION WIDTH 13.3 % (9.6-15.2)
[2021-01-17 12:20] LABS: ALANINE AMINOTRANSFERASE 37 U/L (12-78); ALBUMIN 3.7 g/dL (3.4-5.0); ANION GAP 9 mmol/L (5-15); CALCIUM 8.9 mg/dL (8.5-10.1); CHLORIDE 109 mmol/L (98-107); CREATININE 0.68 mg/dL (0.55-1.02)
[2021-01-17 12:22] LABS: ALKALINE PHOSPHATASE 79 U/L (45-117); BILIRUBIN,TOTAL 0.4 mg/dL (0.2-1.0); TOTAL PROTEIN 8.1 g/dL (6.4-8.2)
--- NOTE | 2021-01-17 12:23 | NUR ---
PT RESTING ON GURNEY. C/O ABD PAIN. REQUESTING PAIN MED. WILL NOTIFY ERP.
[2021-01-17 12:40] LABS: MICROSCOPIC NOT IND
[2021-01-17] MEDS ORDERED: MORPHINE SULFATE 4 MG/ML, 1ML ONE ×4 (12:41→19:24)
[2021-01-17] MEDS ORDERED: MORPHINE SULFATE 4 MG/ML, 1ML IVPush ONE ×2 (13:00→14:00)
--- NOTE | 2021-01-17 13:21 | NUR ---
PT CHART REVIEWED AND PLACED FOR RECHECK.
--- NOTE | 2021-01-17 13:23 | NUR ---
PT RESTING ON GURNEY. TOURE
[2021-01-17] MEDS: POTASSIUM CHLORIDE 20 MEQ in LACTATED RINGERS 1,000 ML IV SCH ×3 (13:59→21:51)
--- NOTE | 2021-01-17 14:24 | NUR ---
PT BACK FROM CT IN STABLE CONDITION. PT RESTING ON MARC. NADN. LITTLES.
--- NOTE | 2021-01-17 15:24 | NUR ---
PT RESTING ON GURNEY. NADN. BETTENCOURT.
[2021-01-17] MEDS ORDERED: MAALOX/HYOSCYAMINE/LIDOCAINE 45 ML BTL ONE (15:34)
[2021-01-17] MEDS ORDERED: MAALOX/HYOSCYAMINE/LIDOCAINE 45 ML BTL PO ONE (16:00)
--- NOTE | 2021-01-17 16:29 | NUR ---
PT RESTING ON GURNEY. NADN. BETTENCOURT.
--- NOTE | 2021-01-17 17:50 | NUR ---
PT RESTING ON GURNEY. STATES ABD PAIN INCREASING. ERP DR. KIMBLE NOTIFIED.
[2021-01-17] MEDS: MORPHINE SULFATE 4 MG/ML, 1ML IVPush PRN ×2 (18:03→19:26)
[2021-01-17] MEDS ORDERED: ACETAMINOPHEN 325 MG TABLET PO PRN (19:00)
[2021-01-17] MEDS ORDERED: morphine SULFATE 10 MG/ML, 1ML IVPush PRN (19:00)
[2021-01-17] MEDS ORDERED: DICYCLOMINE 10 MG/ML, 2ML IM PRN (19:00)
--- NOTE | 2021-01-17 19:27 | NUR ---
TASK RN:MEDICATED PER EMAR FOR EPIGASTRIC PAIN AT 01/08. PRIMARY MADE AWARE
--- NOTE | 2021-01-17 19:35 | NUR ---
REPORT GIVEN TO KYLER, LAY RN. ALL QUESTIONS ANSWERED. AWAITING PT TRANSPORT.
--- NOTE | 2021-01-17 19:37 | NUR ---
Noris coto in ED - 01/17/21 at 2020 by GREGORY PER PROTOCOL. [phone] CHANGE IN GLUCOSE. HOLD INSULIN DRIP BY 30 MIN THEN DECREASE INFUSION BY 2 U/HR
[2021-01-17] MEDS: AMPICILLIN/SULBACTAM 3 GM in SODIUM CHLORIDE 0.9% 100 ML IV SCH (19:43)
[2021-01-17] MEDS ORDERED: OXYB5TAB10 PO (20:08)
[2021-01-17] MEDS ORDERED: PLEASE ENTER HEIGHT AND WEIGHT MC SCH (20:30)
[2021-01-17] MEDS ORDERED: AMOXICILLIN/CLAV 875-125MG TABLET PO SCH (21:00)
[2021-01-17] MEDS ORDERED: HYDROmorphone 2 MG/ML, 1ML ONE (21:41)
[2021-01-17] MEDS: HYDROmorphone 1 MG/ML, 1ML INJ IV PRN (21:46)
[2021-01-17] MEDS: ONDANSETRON 2MG/ML, 2ML IVPush PRN (21:47)
[2021-01-17] MEDS: PANTOPRAZOLE 40 MG IV IVPush SCH (21:51)
[2021-01-17] MEDS: NYSTATIN 500,000 UNITS/5 ML UDC PO SCH (21:51)
[2021-01-17] MEDS: AMIODARONE 200 MG TABLET PO SCH (21:52)
[2021-01-17] MEDS: BUSPIRONE 10 MG TABLET PO SCH (21:52)
[2021-01-17] MEDS: APIXABAN 5 MG TABLET PO SCH (21:52)
[2021-01-17] MEDS: OXYBUTYNIN CHLORIDE 5 MG TABLET PO SCH (21:53)
[2021-01-17] MEDS: OXCARBAZEPINE 150 MG TABLET PO SCH (21:56)
[2021-01-18] MEDS: POTASSIUM CHLORIDE 20 MEQ in LACTATED RINGERS 1,000 ML IV SCH ×3 (00:06→09:15)
[2021-01-18 01:35] VITALS: BP 152/94
[2021-01-18] MEDS ORDERED: HYDROmorphone 2 MG/ML, 1ML ONE ×6 (02:05→19:49)
[2021-01-18] MEDS: HYDROmorphone 1 MG/ML, 1ML INJ IV PRN ×5 (02:13→19:57)
[2021-01-18] MEDS: AMPICILLIN/SULBACTAM 3 GM in SODIUM CHLORIDE 0.9% 100 ML IV SCH ×4 (02:22→21:30)
[2021-01-18] MEDS: NYSTATIN 500,000 UNITS/5 ML UDC PO SCH ×4 (06:48→19:57)
[2021-01-18] MEDS: ONDANSETRON 2MG/ML, 2ML IVPush PRN ×2 (06:49→19:57)
[2021-01-18 07:28] LABS: BASOPHILS % (AUTO) 1 % (0-1); EOSINOPHILS % (AUTO) 5 % (1-7); LYMPHOCYTES % (AUTO) 39 % (22-44); MEAN CORPUSCULAR HEMOGLOBIN 30.3 pg (27.0-34.8); MEAN CORPUSCULAR HGB CONC 34.2 g/dL (32.4-35.8); MEAN PLATELET VOLUME 7.3 fL (7.4-10.4); MONOCYTES % (AUTO) 7 % (2-9); NEUTROPHILS % (AUTO) 48 % (42-75); PLATELET COUNT 355 x10^3/uL (130-400); RED BLOOD COUNT 3.76 x10^6/uL (3.82-5.3)
[2021-01-18 07:35] LABS: CHLORIDE 106 mmol/L (98-107)
[2021-01-18 07:50] LABS: ALANINE AMINOTRANSFERASE 32 U/L (12-78); ALBUMIN 3.3 g/dL (3.4-5.0); ALKALINE PHOSPHATASE 65 U/L (45-117); ANION GAP 8 mmol/L (5-15); BILIRUBIN,TOTAL 0.5 mg/dL (0.2-1.0); CALCIUM 8.3 mg/dL (8.5-10.1); TOTAL PROTEIN 7.3 g/dL (6.4-8.2)
[2021-01-18] MEDS: OXYBUTYNIN CHLORIDE 5 MG TABLET PO SCH ×3 (09:00→19:58)
[2021-01-18] MEDS: APIXABAN 5 MG TABLET PO SCH ×2 (09:15→19:58)
[2021-01-18] MEDS: PANTOPRAZOLE 40 MG IV IVPush SCH (09:15)
[2021-01-18] MEDS: LEVOTHYROXINE 75 MCG TABLET PO SCH (09:16)
[2021-01-18] MEDS: AMIODARONE 200 MG TABLET PO SCH ×2 (09:16→19:58)
[2021-01-18] MEDS: BUSPIRONE 10 MG TABLET PO SCH ×2 (09:16→19:58)
[2021-01-18 09:38] VITALS: BP 141/88
[2021-01-18] MEDS: PROMETHAZINE 25 MG/ML, 1ML IM PRN (11:05)
[2021-01-18] MEDS ORDERED: PROPOFOL 10 MG/ML, 20ML ONE (12:10)
[2021-01-18] MEDS ORDERED: ONDANSETRON 2MG/ML, 2ML IVPush PRN (12:30)
[2021-01-18] MEDS ORDERED: FENTANYL PF 100 MCG/2ML IV PRN (12:30)
[2021-01-18] MEDS ORDERED: MEPERIDINE/PF 25MG/0.5ML IVPush PRN (12:30)
[2021-01-18] MEDS ORDERED: morphine SULFATE 10 MG/ML, 1ML IVPush PRN (12:30)
[2021-01-18] MEDS ORDERED: FENTANYL PF 100 MCG/2ML ONE (12:47)
[2021-01-18] MEDS ORDERED: HYDROmorphone 1 MG/ML, 1ML INJ IVPush PRN (13:00)
[2021-01-18 13:37] VITALS: BP 128/73
[2021-01-18] MEDS: PANTOPRAZOLE 40MG TABLET PO SCH (16:00)
[2021-01-18] MEDS: METOCLOPRAMIDE 5 MG/ML, 2ML IVPush PRN (16:47)
[2021-01-18 17:22] LABS: MICROSCOPIC NOT IND
[2021-01-18 18:28] VITALS: BP 128/84
[2021-01-18] MEDS: OXCARBAZEPINE 150 MG TABLET PO SCH (19:58)
[2021-01-19] MEDS ORDERED: HYDROmorphone 2 MG/ML, 1ML ONE ×7 (00:06→20:45)
[2021-01-19] MEDS: POTASSIUM CHLORIDE 20 MEQ in LACTATED RINGERS 1,000 ML IV SCH ×3 (00:11→22:56)
[2021-01-19] MEDS: HYDROmorphone 1 MG/ML, 1ML INJ IV PRN ×7 (00:11→20:48)
[2021-01-19 00:23] VITALS: BP 133/83
[2021-01-19] MEDS: AMPICILLIN/SULBACTAM 3 GM in SODIUM CHLORIDE 0.9% 100 ML IV SCH ×4 (03:17→20:48)
[2021-01-19] MEDS: PANTOPRAZOLE 40MG TABLET PO SCH ×2 (06:20→15:20)
[2021-01-19] MEDS: ONDANSETRON 2MG/ML, 2ML IVPush PRN ×2 (06:20→15:20)
[2021-01-19] MEDS: NYSTATIN 500,000 UNITS/5 ML UDC PO SCH ×4 (06:20→20:48)
[2021-01-19 06:28] LABS: BASOPHILS % (AUTO) 1 % (0-1); EOSINOPHILS % (AUTO) 6 % (1-7); LYMPHOCYTES % (AUTO) 41 % (22-44); MEAN CORPUSCULAR HEMOGLOBIN 30.5 pg (27.0-34.8); MEAN CORPUSCULAR HGB CONC 34.5 g/dL (32.4-35.8); MEAN PLATELET VOLUME 7.4 fL (7.4-10.4); MONOCYTES % (AUTO) 8 % (2-9); NEUTROPHILS % (AUTO) 43 % (42-75); PLATELET COUNT 334 x10^3/uL (130-400); RED BLOOD COUNT 3.78 x10^6/uL (3.82-5.3); RED CELL DISTRIBUTION WIDTH 13.1 % (9.6-15.2)
[2021-01-19 06:43] LABS: ALBUMIN 3.2 g/dL (3.4-5.0); ANION GAP 8 mmol/L (5-15); CALCIUM 8.8 mg/dL (8.5-10.1); CHLORIDE 104 mmol/L (98-107)
[2021-01-19 06:49] LABS: ALANINE AMINOTRANSFERASE 43 U/L (12-78); ALKALINE PHOSPHATASE 59 U/L (45-117); BILIRUBIN,TOTAL 0.4 mg/dL (0.2-1.0); CREATININE 0.67 mg/dL (0.55-1.02); TOTAL PROTEIN 7.3 g/dL (6.4-8.2)
[2021-01-19 07:38] VITALS: BP 123/85
[2021-01-19] MEDS: OXYBUTYNIN CHLORIDE 5 MG TABLET PO SCH ×3 (09:00→20:49)
[2021-01-19] MEDS: LEVOTHYROXINE 75 MCG TABLET PO SCH (09:28)
[2021-01-19] MEDS: APIXABAN 5 MG TABLET PO SCH ×2 (09:28→20:49)
[2021-01-19] MEDS: AMIODARONE 200 MG TABLET PO SCH ×2 (09:28→20:49)
[2021-01-19] MEDS: BUSPIRONE 10 MG TABLET PO SCH ×2 (09:28→20:49)
[2021-01-19] MEDS: PROMETHAZINE 25 MG/ML, 1ML IM PRN (09:38)
[2021-01-19 11:53] LABS: CRYPTOSPORIDIUM ANTIGEN Negative (Negative)
[2021-01-19 13:29] VITALS: BP 123/83
[2021-01-19 18:49] VITALS: BP 131/82
[2021-01-19] MEDS: METOCLOPRAMIDE 5 MG/ML, 2ML IVPush PRN (20:49)
[2021-01-19] MEDS: OXCARBAZEPINE 150 MG TABLET PO SCH (20:49)
[2021-01-20] MEDS ORDERED: HYDROmorphone 2 MG/ML, 1ML ONE ×7 (02:06→21:41)
[2021-01-20 02:09] VITALS: BP 133/90
[2021-01-20] MEDS: AMPICILLIN/SULBACTAM 3 GM in SODIUM CHLORIDE 0.9% 100 ML IV SCH ×4 (02:09→21:17)
[2021-01-20] MEDS: HYDROmorphone 1 MG/ML, 1ML INJ IV PRN ×7 (02:09→21:50)
[2021-01-20] MEDS: ONDANSETRON 2MG/ML, 2ML IVPush PRN ×3 (05:08→21:49)
[2021-01-20] MEDS: NYSTATIN 500,000 UNITS/5 ML UDC PO SCH ×4 (05:09→21:16)
[2021-01-20] MEDS: PANTOPRAZOLE 40MG TABLET PO SCH (05:09)
[2021-01-20 05:44] LABS: ALBUMIN 3.1 g/dL (3.4-5.0); ANION GAP 7 mmol/L (5-15); CALCIUM 8.3 mg/dL (8.5-10.1); CHLORIDE 104 mmol/L (98-107)
[2021-01-20 05:49] LABS: BASOPHILS % (AUTO) 1 % (0-1); EOSINOPHILS % (AUTO) 8 % (1-7); LYMPHOCYTES % (AUTO) 37 % (22-44); MEAN CORPUSCULAR HEMOGLOBIN 30.8 pg (27.0-34.8); MEAN CORPUSCULAR HGB CONC 34.8 g/dL (32.4-35.8); MEAN PLATELET VOLUME 7.6 fL (7.4-10.4); MONOCYTES % (AUTO) 7 % (2-9); NEUTROPHILS % (AUTO) 47 % (42-75); PLATELET COUNT 342 x10^3/uL (130-400); RED BLOOD COUNT 3.67 x10^6/uL (3.82-5.3); RED CELL DISTRIBUTION WIDTH 13.1 % (9.6-15.2)
[2021-01-20 05:50] LABS: ALANINE AMINOTRANSFERASE 49 U/L (12-78); ALKALINE PHOSPHATASE 60 U/L (45-117); BILIRUBIN,TOTAL 0.3 mg/dL (0.2-1.0); CREATININE 0.65 mg/dL (0.55-1.02); TOTAL PROTEIN 7.1 g/dL (6.4-8.2)
[2021-01-20 06:36] VITALS: BP 131/87
[2021-01-20] MEDS: OXYBUTYNIN CHLORIDE 5 MG TABLET PO SCH ×4 (09:40→21:17)
[2021-01-20] MEDS: BUSPIRONE 10 MG TABLET PO SCH ×2 (09:40→21:17)
[2021-01-20] MEDS: PROMETHAZINE 25 MG/ML, 1ML IM PRN (09:40)
[2021-01-20] MEDS: APIXABAN 5 MG TABLET PO SCH ×3 (09:41→21:17)
[2021-01-20] MEDS: AMIODARONE 200 MG TABLET PO SCH ×3 (09:41→21:16)
[2021-01-20] MEDS: LEVOTHYROXINE 75 MCG TABLET PO SCH ×2 (09:41→12:00)
[2021-01-20] MEDS: POTASSIUM CHLORIDE 20 MEQ in LACTATED RINGERS 1,000 ML IV SCH (10:51)
[2021-01-20] MEDS: MOTEGRITY 2 MG PO SCH (13:26)
[2021-01-20 13:35] VITALS: BP 135/88
[2021-01-20 14:26] LABS: AMPHETAMINE SCREEN, URINE Negative (Negative); BARBITURATE SCREEN, URINE Negative (Negative); BENZODIAZEPINE SCREEN, URINE Negative (Negative); CANNABINOID SCREEN, URINE Negative (Negative); COCAINE SCREEN, URINE Negative (Negative); METHADONE SCREEN, URINE Negative (Negative); OPIATE SCREEN, URINE Positive (Negative)
[2021-01-20] MEDS: PANTOPRAZOLE 40 MG IV IVPush SCH (16:36)
[2021-01-20] MEDS: D5%-LR+KCL 20MEQ 1,000 ML IV SCH (17:27)
[2021-01-20] MEDS: LORazepam 2 MG/ML, 1ML IVPush PRN (17:36)
[2021-01-20 20:03] VITALS: BP 157/88
[2021-01-20] MEDS: OXCARBAZEPINE 150 MG TABLET PO SCH (21:17)
[2021-01-21 01:36] VITALS: BP 131/85
[2021-01-21] MEDS ORDERED: HYDROmorphone 2 MG/ML, 1ML ONE ×7 (01:43→23:35)
[2021-01-21] MEDS: HYDROmorphone 1 MG/ML, 1ML INJ IV PRN ×7 (01:45→23:37)
[2021-01-21] MEDS: D5%-LR+KCL 20MEQ 1,000 ML IV SCH ×3 (02:58→23:33)
[2021-01-21] MEDS: PANTOPRAZOLE 40 MG IV IVPush SCH ×2 (06:21→16:39)
[2021-01-21] MEDS: NYSTATIN 500,000 UNITS/5 ML UDC PO SCH ×4 (06:21→20:34)
[2021-01-21 07:07] VITALS: BP 132/89
[2021-01-21] MEDS: OXYBUTYNIN CHLORIDE 5 MG TABLET PO SCH ×3 (09:00→20:35)
[2021-01-21] MEDS: MOTEGRITY 2 MG PO SCH (09:00)
[2021-01-21] MEDS: BUSPIRONE 10 MG TABLET PO SCH ×2 (09:01→20:35)
[2021-01-21] MEDS: APIXABAN 5 MG TABLET PO SCH ×2 (09:01→20:35)
[2021-01-21] MEDS: LEVOTHYROXINE 75 MCG TABLET PO SCH (09:01)
[2021-01-21] MEDS: AMIODARONE 200 MG TABLET PO SCH ×2 (09:01→20:35)
[2021-01-21] MEDS: ONDANSETRON 2MG/ML, 2ML IVPush PRN ×2 (11:56→20:37)
[2021-01-21 12:17] VITALS: BP 138/94
[2021-01-21] MEDS: LORazepam 2 MG/ML, 1ML IVPush PRN (15:24)
[2021-01-21 18:43] VITALS: BP 125/83
[2021-01-21] MEDS: OXCARBAZEPINE 150 MG TABLET PO SCH (20:35)
[2021-01-21] MEDS ORDERED: DOXYLAMINE 25MG TABLET PO SCH (21:00)
[2021-01-22 01:39] VITALS: BP 125/77
[2021-01-22] MEDS ORDERED: HYDROmorphone 2 MG/ML, 1ML ONE ×4 (04:35→16:09)
[2021-01-22] MEDS: HYDROmorphone 1 MG/ML, 1ML INJ IV PRN ×4 (04:37→16:15)
[2021-01-22] MEDS: NYSTATIN 500,000 UNITS/5 ML UDC PO SCH ×3 (06:01→16:00)
[2021-01-22] MEDS: PANTOPRAZOLE 40 MG IV IVPush SCH ×2 (06:01→16:14)
[2021-01-22] MEDS: ONDANSETRON 2MG/ML, 2ML IVPush PRN ×3 (06:01→12:09)
[2021-01-22] MEDS: MOTEGRITY 2 MG PO SCH (09:00)
[2021-01-22] MEDS: OXYBUTYNIN CHLORIDE 5 MG TABLET PO SCH ×3 (09:00→16:00)
[2021-01-22 09:34] VITALS: BP 139/91
[2021-01-22] MEDS: AMIODARONE 200 MG TABLET PO SCH (09:44)
[2021-01-22] MEDS: BUSPIRONE 10 MG TABLET PO SCH (09:44)
[2021-01-22] MEDS: APIXABAN 5 MG TABLET PO SCH (09:44)
[2021-01-22] MEDS: D5%-LR+KCL 20MEQ 1,000 ML IV SCH (09:44)
[2021-01-22] MEDS: LEVOTHYROXINE 75 MCG TABLET PO SCH (09:45)
[2021-01-22 13:09] VITALS: BP 134/83
[2021-01-22] MEDS ORDERED: DOXY25TA45 PO (14:22)
[2021-01-22] MEDS ORDERED: LORA2ORA7 PO (14:22)
[2021-01-22] MEDS ORDERED: OXYC5CAP2 PO (14:22)
[2021-01-22] MEDS ORDERED: LORA-446 PO (14:22)
[2021-01-22] MEDS ORDERED: ONDA4TAB13 SL (14:22)
[2021-01-22] MEDS ORDERED: PANT40TA3 PO (15:48)
[2021-01-22] MEDS ORDERED: OXYC5TAB98 PO (15:48)
[2021-01-22] MEDS: LORazepam 2 MG/ML, 1ML IVPush PRN (16:51)
[2021-02-20] MEDS ORDERED: AJOVY 225 MG SQ SCH (09:00)
== END 2021-01-22 17:55 | disposition home or self-care (01) | DRG 392 ==
LOC: ED 10:02 → EDIP 13:40 → 4NW 20:02
PROVIDERS: ADMIT Internal Medicine; ATTEND Internal Medicine
PROC: 0T9B70Z Drainage of Bladder with Drainage Device, Via Natural or Artificial Opening (ICD-10-PCS; 2021-01-17)
PROC: 0DB68ZX Excision of Stomach, Via Natural or Artificial Opening Endoscopic, Diagnostic (ICD-10-PCS; 2021-01-18)
PROC: 0DB98ZX Excision of Duodenum, Via Natural or Artificial Opening Endoscopic, Diagnostic (ICD-10-PCS; principal; 2021-01-18 14:30)
DX: K31.84 Gastroparesis (principal); C85.90 Non-Hodgkin lymphoma, unspecified, unspecified site; B37.0 Candidal stomatitis; Z79.01 Long term (current) use of anticoagulants; Z20.822 Contact with and (suspected) exposure to COVID-19; D63.8 Anemia in other chronic diseases classified elsewhere; E21.0 Primary hyperparathyroidism; E66.9 Obesity, unspecified; E78.5 Hyperlipidemia, unspecified; F31.9 Bipolar disorder, unspecified; G43.909 Migraine, unspecified, not intractable, without status migrainosus; G47.33 Obstructive sleep apnea (adult) (pediatric); G62.9 Polyneuropathy, unspecified; G89.29 Other chronic pain; I10 Essential (primary) hypertension; I27.20 Pulmonary hypertension, unspecified; I48.91 Unspecified atrial fibrillation; K21.9 Gastro-esophageal reflux disease without esophagitis; K59.09 Other constipation; G62.0 Drug-induced polyneuropathy; N20.0 Calculus of kidney; N30.10 Interstitial cystitis (chronic) without hematuria; T45.1X5A Adverse effect of antineoplastic and immunosuppressive drugs, initial encounter; Z85.3 Personal history of malignant neoplasm of breast; Z86.011 Personal history of benign neoplasm of the brain; Z87.442 Personal history of urinary calculi; Z90.12 Acquired absence of left breast and nipple; Z90.710 Acquired absence of both cervix and uterus; Z88.8 Allergy status to other drugs, medicaments and biological substances; Z91.041 Radiographic dye allergy status; Z91.040 Latex allergy status; Y92.89 Other specified places as the place of occurrence of the external cause; Z68.38 Body mass index [BMI] 38.0-38.9, adult; Z79.899 Other long term (current) drug therapy; Z83.3 Family history of diabetes mellitus; Z80.1 Family history of malignant neoplasm of trachea, bronchus and lung; Z82.5 Family history of asthma and other chronic lower respiratory diseases; Z82.49 Family history of ischemic heart disease and other diseases of the circulatory system
CPT/HCPCS: 36415; 74018; 74176; 80053; 80307; 81003; 83605; 83690; 84443; 85025; 87040; 87046; 87324; 87328; 87329; 87427; 87635; 88305; 89055; 93005; 96361; 96374; 96375; 96376; 99214; 99285; G0378; J0295; J1170; J2405; J2550; J2704; J3480; C9113; G0463; J2060; J2270; J2765; J7030; J7120

== ENCOUNTER 2021-01-24 16:35 | Outpatient (CLI) | payer OTHER, MEDICARE ==
[~2021-01-24 16:35] MED LIST changes: +DOXY25TA45 PO; +LORA-446 PO; +LORA2ORA7 PO; +ONDA4TAB13 SL; +OXYC5TAB98 PO; +PANT40TA3 PO
[2021-01-24] MEDS ORDERED: GADOTERATE 10 MMOL/20ML SYR ONE (17:51)
== END 2021-01-24 23:59 | disposition home or self-care (01) ==
LOC: RAD 16:35
PROVIDERS: ATTEND Pathology Hematology
DX: C92.11 Chronic myeloid leukemia, BCR/ABL-positive, in remission (principal); C50.312 Malignant neoplasm of lower-inner quadrant of left female breast
CPT/HCPCS: 70553; A9575

== ENCOUNTER 2021-01-28 07:25 | Outpatient (CLI) | payer OTHER, MEDICARE ==
[~2021-01-28 07:25] MED LIST changes: +POTA-143 PO; -POTA20TA6 PO
== END 2021-01-28 23:59 | disposition home or self-care (01) ==
LOC: ROC 07:25
PROVIDERS: ATTEND Radiology Radiation Oncology
DX: C50.312 Malignant neoplasm of lower-inner quadrant of left female breast (principal); D63.8 Anemia in other chronic diseases classified elsewhere; F31.9 Bipolar disorder, unspecified; I10 Essential (primary) hypertension; K21.9 Gastro-esophageal reflux disease without esophagitis; E78.5 Hyperlipidemia, unspecified; G89.29 Other chronic pain; Z79.01 Long term (current) use of anticoagulants; Z90.710 Acquired absence of both cervix and uterus; Z79.899 Other long term (current) drug therapy
CPT/HCPCS: 99214; G0463

== ENCOUNTER 2021-02-05 06:46 | Outpatient (CLI) | payer OTHER, MEDICARE | END 2021-02-05 23:59 | disposition home or self-care (01) | LOC: CFH 06:46 | PROVIDERS: ATTEND Radiology Radiation Oncology | DX: C50.312 Malignant neoplasm of lower-inner quadrant of left female breast (principal); R22.32 Localized swelling, mass and lump, left upper limb | CPT/HCPCS: 76642 ==